=== PATIENT | female | born 1985 | race Caucasian/White ===

== ENCOUNTER 2018-06-05 07:02 | Outpatient (CLI) | payer BC, SELFPAY | END 2018-06-05 07:22 | PROVIDERS: PCP Nurse Practitioner Family; Visit Provider Advanced Practice Midwife | DX: O20.8 Other hemorrhage in early pregnancy (principal); Z34.91 Encounter for supervision of normal pregnancy, unspecified, first trimester | CPT/HCPCS: 36415; 86850; 86900; 86901; 84702 ==

== ENCOUNTER 2018-06-07 00:09 | Outpatient (CLI) | payer BC, SELFPAY ==
[2018-06-07 10:26] LABS: HCG Quant, Pregnancy 43361 mIU/mL (1-3)
== END 2018-06-07 00:29 ==
PROVIDERS: PCP Nurse Practitioner Family; Visit Provider Advanced Practice Midwife
DX: O20.0 Threatened abortion (principal)
CPT/HCPCS: 36415; 84702

== ENCOUNTER 2018-06-20 16:25 | Outpatient (CLI) | payer BC, SELFPAY ==
[2018-06-20 16:53] LABS: Abs Immature Grans 0.03 k/cumm (0.0-0.09); Absolute Basophil Count 0.03 k/cumm (0.0-0.2); Absolute Eosinophil Count 0.13 k/cumm (0.0-0.7); Absolute Lymphocyte Count 3.28 k/cumm (1.2-3.4); Absolute Monocyte Count 0.78 k/cumm (0.11-0.7); Absolute Neutrophil Count 6.44 k/cumm (1.2-6.7); Basophils % 0.3; Eosinophils % 1.2; HCT 41.3 % (36.0-46.0); HGB 14.2 g/dL (12.0-15.5); Immature Grans % 0.3; Lymphocytes % 30.7; Mean Corp. HGB Concentration 34.4 g/dL (32.0-36.0); Mean Corpuscular Hemoglobin 28.9 pg (27.0-33.0); Mean Corpuscular Volume 83.9 fL (80-95); Mean Platelet Volume 10.3 fL (8.0-11.0); Monocytes % 7.3; Neutrophils % 60.2; Platelet Count 228 x1000/uL (130-400); RBC 4.92 m/cumm (4.00-5.20); RBC Distribution Width 13.2 % (11.7-14.6); White Blood Cell Count 10.69 k/cumm (4.4-10.8)
[2018-06-23 11:21] LABS: HIV-1/2 Ag & Ab Screen Negative (NEGAT); Hepatitis C Ab w Rflx HCV PCR Negative (NEGAT)
[2018-06-23 11:44] LABS: Hepatitis B Surface Ag Negative (NEGAT)
[2018-06-23 13:58] LABS: Rubella IgG Ab (UVM) Positive; Syphilis Serology (RPR) Negative (Negative); Varicella IgG Antibody Positive
== END 2018-06-20 16:45 ==
PROVIDERS: PCP Nurse Practitioner Family; Visit Provider Advanced Practice Midwife
DX: Z34.91 Encounter for supervision of normal pregnancy, unspecified, first trimester (principal); Z11.4 Encounter for screening for human immunodeficiency virus [HIV]; Z11.59 Encounter for screening for other viral diseases; Z01.84 Encounter for antibody response examination
CPT/HCPCS: 36415; 80055; 86787; 86803; 86900; 86901; 87340; 87389; 86592; 86762

== ENCOUNTER 2018-06-20 16:55 | Outpatient (REF) | payer BC, SELFPAY ==
--- NOTE | 2018-06-20 16:15 | PAPFT_PTH ---
PATIENT: Emmie Alicea LOC: [facility] U#:[id number] AGE/SX: 32/F ROOM: RE06/20/[address]: Mei Valdes CNM : 1985 BED: DIS: 06/20/2018 SPEC #: [id number] RECD: 06/23/18 12:51 STATUS: JOSE RELamonte #: [id number] RAFFAELE: 06/20/18 16:[address]: Mei Valdes DEPT: [facility] Cytology RECD BY: Yoselyn Pearson ENTERED: 06/23/18 12:52 SP TYPE: PAPFT OTHR DR: Nadia Napier Tissues: 1 - CX/ENDOCX FOR PAP SMEARS Procedures: PAP THIN PREP/UVM Screening HPV DNA PROBE Comments: [id number]
[2018-06-20 17:42] LABS: *AMPHETAMINES SCREEN URINE Negative (Negative); *BARBITURATES SCREEN URINE Negative (Negative); *BENZODIAZEPINES SCREEN URINE Negative (Negative); Cannabinoids THC Negative (Negative); Cocaine Screen,Urine Negative (Negative); METHADONE URINE SCREEN Negative (Negative); OPIATES URINE SCREEN Negative (Negative)
[2018-06-20 17:56] LABS: Tricyclic Antidepressants Negative (Negative)
[2018-06-23 13:42] LABS: Chlamydia Result Negative; GC Result Negative
[2018-06-26 08:26] LABS: Buprenorphine Negative; Norbuprenorphine Negative
== END 2018-06-20 17:15 ==
LOC: LBN 16:55
PROVIDERS: PCP Nurse Practitioner Family; Visit Provider Advanced Practice Midwife
DX: Z34.91 Encounter for supervision of normal pregnancy, unspecified, first trimester (principal); Z11.3 Encounter for screening for infections with a predominantly sexual mode of transmission; Z12.4 Encounter for screening for malignant neoplasm of cervix; Z11.51 Encounter for screening for human papillomavirus (HPV)
CPT/HCPCS: 80307; 87491; 87591; 88142; 87086; 87624

== ENCOUNTER 2018-07-18 13:38 | Outpatient (CLI) | payer BC, SELFPAY ==
[2018-07-18 14:06] LABS: Kit/Specimen SENT
[2018-07-18 15:03] LABS: TSH (W/Ref FT4) 0.99 uIU/mL (0.358-3.74)
[2018-07-24 15:16] LABS: Specimen WB Whole Blood
[2018-07-25 16:53] LABS: Result Summary NEGATIVE; Specimen WB Whole Blood
== END 2018-07-18 13:58 ==
PROVIDERS: PCP Nurse Practitioner Family; Visit Provider Advanced Practice Midwife
DX: Z34.91 Encounter for supervision of normal pregnancy, unspecified, first trimester (principal); Z36.89 Encounter for other specified antenatal screening
CPT/HCPCS: 81329; 81220; 84443

== ENCOUNTER 2018-08-22 16:21 | Outpatient (CLI) | payer BC, SELFPAY ==
[2018-08-26 17:01] LABS: AFP 46.6 ng/mL; Calculated age at EDD 31 years; Cigarette smoking status non-smoker; GA used in risk estimate Dates estimate; IVF Pregnancy No; Initial or repeat testing Initial testing; Insulin dependent diabetes No; Maternal Weight 170 lbs; Number of Fetuses 1; Physician Phone Number 802-748-7300; RECOMMENDED FOLLOW UP None.; Results Summary Normal risk
== END 2018-08-22 16:41 ==
PROVIDERS: PCP Nurse Practitioner Family; Visit Provider Advanced Practice Midwife
DX: Z34.91 Encounter for supervision of normal pregnancy, unspecified, first trimester (principal); Z36.89 Encounter for other specified antenatal screening
CPT/HCPCS: 36415; 82105

== ENCOUNTER 2018-10-24 02:02 | Outpatient (CLI) | payer BC, SELFPAY ==
[2018-10-24 09:04] LABS: HCT 38.1 % (36.0-46.0); HGB 13.2 g/dL (12.0-15.5); Mean Corp. HGB Concentration 34.6 g/dL (32.0-36.0); Mean Corpuscular Hemoglobin 29.9 pg (27.0-33.0); Mean Corpuscular Volume 86.4 fL (80-95); Mean Platelet Volume 10.9 fL (8.0-11.0); Platelet Count 213 x1000/uL (130-400); RBC 4.41 m/cumm (4.00-5.20); White Blood Cell Count 10.31 k/cumm (4.4-10.8)
[2018-10-24 09:05] LABS: Glucose,1 Hr (Glucola) 68 mg/dL (80-140)
== END 2018-10-24 02:22 ==
PROVIDERS: PCP Nurse Practitioner Family; Visit Provider Advanced Practice Midwife
DX: Z34.92 Encounter for supervision of normal pregnancy, unspecified, second trimester (principal)
CPT/HCPCS: 36415; 82950; 85027

== ENCOUNTER 2018-11-24 00:28 | Outpatient (CLI) | payer BC, SELFPAY ==
--- NOTE | 2018-11-24 13:47 | DI.US_ITS ---
SYMPTOM/DIAGNOSIS: 3RD TRIMESTER F/U TO CHECK FOR NML DEVELOPMENT Z34.90, Z82.79 OBSTETRICAL ULTRASOUND: Routine examination was performed. There is a single living intrauterine gestation. Estimated sonographic age is 34 weeks 3 days. The placenta is posterior without evidence of previa The fetus is in the breech position. heart rate is 147 BPM. No abnormalities were identified. The kidneys appear grossly unremarkable. heart is grossly unremarkable. No abnormal intracranial abnormalities are seen. Estimated gestational age is 34 weeks 3 days Estimated weight is 2371 grams which is the 95th percentile IMPRESSION: Single living intrauterine gestation. Estimated sonographic age is 34 weeks 3 days Predicted Gestational Age: Indication/History: 32 Wks Range: 31 to 33 Prior US done on: Determined by: First US LMP History EDC by prior US: 01/19/19 For multiple gestations: Baby PLACENTA: Grade: I Location: Posterior PRESENTATION: RT LT LOW LYING PREVIA Cephalic Trans (Head RT LT ) Varied Breech XX BIOMETRY: Anatomy Identified: BPD: 85 mm 34 +2 wks 4 chamber Heart XX Heart Rate 147 BPM HC: 318 mm 35 +6 wks LVOT XX Post Fossa XX AC: 303 mm 34 +1 wks RVOT XX Ventricles XX FL: 65 mm 33 +4 wks Stomach XX Nose XX Bladder XX Lips XX Cisterna Magna: 6.6 mm 7.9 CI: Kidneys XX Palate XX Cerebellum: 4.2 mm 3 vessel cord XX Spine XX EFW: 2371 grms 95 % Cord Insertion XX NS= not seen Composite Age (US) 34 +3 wks Many abnormalities cannot be diagnosed. A normal exam does not exclude congenital abnormality. EDC by US 01/02/19 Amniotic Fluid Index: Normal COMMENTS: RUQ: LUQ: RLQ: LLQ: Total: cm Biophysical Profile: Score 0/2 MARIA EUGENIA (>2cm) Respirations (>30 sec) Body flexion/extension Extremity flexion/extension TOTAL SCORE
== END 2018-11-24 00:48 ==
PROVIDERS: PCP Nurse Practitioner Family; Visit Provider Advanced Practice Midwife
DX: Z34.93 Encounter for supervision of normal pregnancy, unspecified, third trimester (principal); Z82.79 Family history of other congenital malformations, deformations and chromosomal abnormalities; O32.1XX1 Maternal care for breech presentation, fetus 1
CPT/HCPCS: 76805

== ENCOUNTER 2018-12-19 03:24 | Outpatient (REF) | payer BC, SELFPAY ==
[2018-12-19 16:59] LABS: PROTEIN 13.2 mg/dL
[2018-12-19 17:00] LABS: COMMENT (LAB VIEW ONLY) 48.85 mg/dL; Prot/Crea Ur Ratio 0.27
[2018-12-19 17:03] LABS: *AMPHETAMINES SCREEN URINE Negative (Negative); *BARBITURATES SCREEN URINE Negative (Negative); *BENZODIAZEPINES SCREEN URINE Negative (Negative); Cannabinoids THC Negative (Negative); Cocaine Screen,Urine Negative (Negative); METHADONE URINE SCREEN Negative (Negative); OPIATES URINE SCREEN Negative (Negative)
[2018-12-19 17:05] LABS: Tricyclic Antidepressants Negative (Negative)
[2018-12-28 08:48] LABS: Buprenorphine Negative; Norbuprenorphine Negative
== END 2018-12-19 03:44 ==
LOC: LBN 03:24
PROVIDERS: PCP Internal Medicine; Visit Provider Advanced Practice Midwife
DX: Z34.93 Encounter for supervision of normal pregnancy, unspecified, third trimester (principal)
CPT/HCPCS: 80307; 82565; 84156

== ENCOUNTER 2018-12-26 09:28 | Outpatient (CLI) | payer BC, SELFPAY ==
[2018-12-26 09:59] LABS: HCT 40.2 % (36.0-46.0); HGB 13.6 g/dL (12.0-15.5); Mean Corp. HGB Concentration 33.8 g/dL (32.0-36.0); Mean Corpuscular Hemoglobin 29.2 pg (27.0-33.0); Mean Corpuscular Volume 86.5 fL (80-95); Mean Platelet Volume 12.2 fL (8.0-11.0); Platelet Count 189 x1000/uL (130-400); RBC 4.65 m/cumm (4.00-5.20); RBC Distribution Width 13.4 % (11.7-14.6); White Blood Cell Count 9.89 k/cumm (4.4-10.8)
[2018-12-26 10:28] LABS: PROTEIN 22.6 mg/dL
[2018-12-26 10:31] LABS: COMMENT (LAB VIEW ONLY) 185.63 mg/dL; Prot/Crea Ur Ratio 0.12
[2018-12-26 10:38] LABS: ALT 26 U/L (14-59); AST 25 U/L (15-37); Albumin 2.4 g/dL (3.4-5.0); Alkaline Phosphatase 113 U/L (46-116); Anion Gap 11.4 mmol/L (3-11); BUN 10 mg/dL (7-18); Bilirubin, Total 0.4 mg/dL (0.2-1.0); CO2 21.6 mmol/L (21.0-32.0); CREATININE 0.66 mg/dL (0.55-1.02); Calcium 9.1 mg/dL (8.5-10.1); Chloride 107 mmol/L (98-107); Glucose 75 mg/dL (70-100); Potassium 4.3 mmol/L (3.5-5.1); Sodium 140 mmol/L (136-145); Total Protein 6.4 g/dL (6.4-8.2); Uric Acid 5.3 mg/dL (2.6-6.0)
== END 2018-12-26 09:48 ==
PROVIDERS: PCP Internal Medicine; Visit Provider Advanced Practice Midwife
DX: O14.93 Unspecified pre-eclampsia, third trimester
CPT/HCPCS: 36415; 80053; 85027; 82565; 84156; 84550

== ENCOUNTER 2018-12-26 10:17 | Outpatient (REF) | payer BC, SELFPAY | END 2018-12-26 10:37 | LOC: LBN 10:17 | PROVIDERS: PCP Internal Medicine; Visit Provider Advanced Practice Midwife | DX: Z34.93 Encounter for supervision of normal pregnancy, unspecified, third trimester (principal); Z11.2 Encounter for screening for other bacterial diseases | CPT/HCPCS: 87081 ==

== ENCOUNTER 2019-01-02 09:48 | Outpatient (CLI) | payer BC, SELFPAY ==
[2019-01-02 11:28] LABS: HCT 42.3 % (36.0-46.0); HGB 14.3 g/dL (12.0-15.5); Mean Corp. HGB Concentration 33.8 g/dL (32.0-36.0); Mean Corpuscular Hemoglobin 29.4 pg (27.0-33.0); Mean Corpuscular Volume 86.9 fL (80-95); Platelet Count 189 x1000/uL (130-400); RBC 4.87 m/cumm (4.00-5.20); RBC Distribution Width 13.6 % (11.7-14.6); White Blood Cell Count 9.21 k/cumm (4.4-10.8)
[2019-01-02 11:39] LABS: Uric Acid 5.1 mg/dL (2.6-6.0)
[2019-01-02 11:41] LABS: ALT 27 U/L (14-59); AST 23 U/L (15-37); Albumin 2.8 g/dL (3.4-5.0); Alkaline Phosphatase 114 U/L (46-116); Anion Gap 8.5 mmol/L (3-11); BUN 10 mg/dL (7-18); Bilirubin, Total 0.3 mg/dL (0.2-1.0); CO2 24.5 mmol/L (21.0-32.0); CREATININE 0.65 mg/dL (0.55-1.02); Calcium 8.8 mg/dL (8.5-10.1); Chloride 106 mmol/L (98-107); Glucose 78 mg/dL (70-100); Potassium 4.1 mmol/L (3.5-5.1); Sodium 139 mmol/L (136-145)
[2019-01-02 11:52] LABS: PROTEIN 10.3 mg/dL
[2019-01-02 11:53] LABS: COMMENT (LAB VIEW ONLY) 44.53 mg/dL; Prot/Crea Ur Ratio 0.23
== END 2019-01-02 10:08 ==
PROVIDERS: PCP Internal Medicine; Visit Provider Advanced Practice Midwife
DX: O13.3 Gestational [pregnancy-induced] hypertension without significant proteinuria, third trimester (principal); Z3A.38 38 weeks gestation of pregnancy
CPT/HCPCS: 80053; 85027; 59025; 82565; 84156; 84550

== ENCOUNTER 2019-01-06 19:44 | Inpatient (IN) | payer BC, SELFPAY ==
[2019-01-06] MEDS: miSOPROStol 50 MCG TAB (21:28)
[2019-01-06 21:44] LABS: HCT 37.4 % (36.0-46.0); HGB 12.7 g/dL (12.0-15.5); Mean Corpuscular Hemoglobin 29.6 pg (27.0-33.0); Mean Corpuscular Volume 87.2 fL (80-95); Mean Platelet Volume 12.2 fL (8.0-11.0); Platelet Count 169 x1000/uL (130-400); RBC 4.29 m/cumm (4.00-5.20); RBC Distribution Width 13.2 % (11.7-14.6); White Blood Cell Count 10.86 k/cumm (4.4-10.8)
[2019-01-07] MEDS: miSOPROStol 25 MCG TAB 50 MCG PO ×5 (06:36→18:40)
[2019-01-07 15:22] LABS: ALT 20 U/L (14-59); AST 22 U/L (15-37); Albumin 2.8 g/dL (3.4-5.0); Alkaline Phosphatase 115 U/L (46-116); Anion Gap 10.4 mmol/L (3-11); BUN 10 mg/dL (7-18); Bilirubin, Total 0.3 mg/dL (0.2-1.0); CO2 22.6 mmol/L (21.0-32.0); CREATININE 0.72 mg/dL (0.55-1.02); Chloride 105 mmol/L (98-107); Glucose 89 mg/dL (70-100); Potassium 4.2 mmol/L (3.5-5.1); Sodium 138 mmol/L (136-145); Total Protein 6.7 g/dL (6.4-8.2); Uric Acid 5.1 mg/dL (2.6-6.0)
[2019-01-07 17:06] LABS: PROTEIN 21.9 mg/dL
[2019-01-07 17:20] LABS: Prot/Crea Ur Ratio 0.25
[2019-01-07] MEDS: Zolpidem 10 MG TAB PO (22:49)
[2019-01-08] MEDS: Lactated Ringers 1,000 ML 125 ML IV (09:20)
[2019-01-08] MEDS: Penicillin G POT. 5,000,000 UNITS in Normal Saline 100 ML 200 UNITS IVPB (09:21)
[2019-01-08] MEDS: Nalbuphine 10 MG/ML AMP SC (13:33)
[2019-01-08] MEDS: Penicillin G POT. 3,000,000 UNITS in Normal Saline 50 ML 100 UNITS IVPB (13:39)
[2019-01-08] MEDS: Hamamelis Leaf/Glycerin 100 EACH BOX PR (17:42)
[2019-01-08] MEDS: Ibuprofen 600 MG TAB PO (19:31)
[2019-01-08] MEDS: Acetaminophen 325 MG TAB 650 MG PO (19:31)
[2019-01-09] MEDS: Ibuprofen 600 MG TAB PO ×2 (03:55→11:44)
[2019-01-09] MEDS: Acetaminophen 325 MG TAB 650 MG PO ×2 (03:55→11:45)
[2019-01-09 07:12] LABS: HCT 34.5 % (36.0-46.0); HGB 11.5 g/dL (12.0-15.5); Mean Corp. HGB Concentration 33.3 g/dL (32.0-36.0); Mean Corpuscular Hemoglobin 29.2 pg (27.0-33.0); Mean Corpuscular Volume 87.6 fL (80-95); Mean Platelet Volume 12.6 fL (8.0-11.0); Platelet Count 179 x1000/uL (130-400); RBC 3.94 m/cumm (4.00-5.20); RBC Distribution Width 13.7 % (11.7-14.6); White Blood Cell Count 19.71 k/cumm (4.4-10.8)
[2019-01-10] MEDS: Acetaminophen 325 MG TAB 650 MG PO ×2 (02:27→08:40)
[2019-01-10] MEDS: Ibuprofen 600 MG TAB PO ×2 (02:28→08:40)
== END 2019-01-10 13:00 | disposition home or self-care (01) | DRG 807 ==
PROVIDERS: Advanced Practice Midwife; Admitting Provider Advanced Practice Midwife; PCP Internal Medicine; Visit Provider Advanced Practice Midwife
DX: O69.81X0 Labor and delivery complicated by cord around neck, without compression, not applicable or unspecified (principal); Z37.0 Single live birth; O70.1 Second degree perineal laceration during delivery; O13.4 Gestational [pregnancy-induced] hypertension without significant proteinuria, complicating childbirth; O76 Abnormality in fetal heart rate and rhythm complicating labor and delivery; Z3A.38 38 weeks gestation of pregnancy; O99.824 Streptococcus B carrier state complicating childbirth
CPT/HCPCS: 36415; 80053; 85027; 86850; 86900; 86901; 82565; 84156; 84550; J2540; J3490

== ENCOUNTER 2019-02-17 18:23 | Outpatient (REF) | payer BC, SELFPAY | END 2019-02-17 18:43 | LOC: LBN 18:23 | PROVIDERS: PCP Internal Medicine; Visit Provider Advanced Practice Midwife | DX: N89.8 Other specified noninflammatory disorders of vagina (principal) | CPT/HCPCS: 87480; 87510; 87660 ==

== ENCOUNTER 2020-04-01 01:43 | Outpatient (CLI) | payer OTHER, SELFPAY ==
[2020-04-01 12:00] LABS: Abs Immature Grans 0.04 10^3/uL (0.0-0.06); Absolute Basophil Count 0.04 10^3/uL (0.0-0.2); Absolute Eosinophil Count 0.07 10^3/uL (0.0-0.7); Absolute Lymphocyte Count 2.42 10^3/uL (1.2-3.4); Absolute Monocyte Count 0.62 10^3/uL (0.1-0.8); Basophils % 0.3; Eosinophils % 0.6; HCT 40.4 % (36.0-46.0); HGB 13.6 g/dL (11.2-15.7); Immature Grans % 0.3; Lymphocytes % 20.3; MCH 28.6 pg (27.0-33.0); MCHC 33.7 % (32.0-36.0); MCV 85.1 fL (80-95); MPV 10.1 fL (8.0-11.0); Monocytes % 5.2; Neutrophils % 73.3; Nucleated RBC 0 %; Platelet Count 254 10^3/uL (130-400); RBC 4.75 10^6/uL (3.93-5.22); RDW 12.6 % (11.7-14.6); RDW-SD 39.2 fL
[2020-04-01 12:01] LABS: Absolute Neutrophil Count 8.72 10^3/uL (1.2-6.7)
[2020-04-01 13:04] LABS: TSH (W/Ref FT4) 0.88 uIU/mL (0.36-3.74)
[2020-04-03 10:44] LABS: Syphilis Total Ab w/Reflex Nonreactive (Nonreactive)
[2020-04-04 09:13] LABS: Hepatitis B Surface Ag Negative (Negative)
[2020-04-04 10:03] LABS: Hepatitis C Ab w Rflx HCV PCR Negative (Negative)
[2020-04-04 10:36] LABS: HIV-1/2 Ag & Ab Screen Negative (Negative)
[2020-04-04 12:33] LABS: Rubella IgG Ab (UVM) Positive (See Note); Varicella IgG Antibody Positive (See Note)
== END 2020-04-01 02:03 ==
PROVIDERS: PCP Internal Medicine; Visit Provider Advanced Practice Midwife
DX: Z34.91 Encounter for supervision of normal pregnancy, unspecified, first trimester (principal); Z11.4 Encounter for screening for human immunodeficiency virus [HIV]; Z01.84 Encounter for antibody response examination; Z11.59 Encounter for screening for other viral diseases
CPT/HCPCS: 36415; 80307; 86787; 86803; 86850; 86900; 86901; 87340; 87389; 87491; 87591; 84443; 85025; 86762; 86780; 87086

== ENCOUNTER 2020-04-01 12:00 | Outpatient (REF) | payer OTHER, SELFPAY ==
[2020-04-01 13:03] LABS: *AMPHETAMINES SCREEN URINE Negative (Negative); *BARBITURATES SCREEN URINE Negative (Negative); *BENZODIAZEPINES SCREEN URINE Negative (Negative); Cannabinoids THC Negative (Negative); Cocaine Screen,Urine Negative (Negative); METHADONE URINE SCREEN Negative (Negative); OPIATES URINE SCREEN Negative (Negative)
[2020-04-01 13:04] LABS: Tricyclic Antidepressants Negative (Negative)
[2020-04-04 15:33] LABS: Chlamydia Result Negative (Negative); GC Result Negative (Negative)
[2020-04-07 14:33] LABS: Buprenorphine Negative; Norbuprenorphine Negative
== END 2020-04-01 12:20 ==
LOC: LBN 12:00
PROVIDERS: PCP Internal Medicine; Visit Provider Advanced Practice Midwife
DX: Z34.91 Encounter for supervision of normal pregnancy, unspecified, first trimester (principal); Z11.3 Encounter for screening for infections with a predominantly sexual mode of transmission
CPT/HCPCS: 80307; 87491; 87591; 87086

== ENCOUNTER 2020-04-21 02:12 | Outpatient (CLI) | payer OTHER, SELFPAY ==
[2020-04-21 10:25] LABS: PROTEIN 13.5 mg/dL
[2020-04-21 10:27] LABS: COMMENT (LAB VIEW ONLY) 110.78 mg/dL; Prot/Crea Ur Ratio 0.12
[2020-04-21 10:28] LABS: HCT 39.1 % (36.0-46.0); HGB 13.1 g/dL (11.2-15.7); MCH 28.6 pg (27.0-33.0); MCHC 33.5 % (32.0-36.0); MCV 85.4 fL (80-95); MPV 10.4 fL (8.0-11.0); Platelet Count 242 10^3/uL (130-400); RBC 4.58 10^6/uL (3.93-5.22); RDW 13.1 % (11.7-14.6); WBC 11.61 10^3/uL (4.4-10.8)
[2020-04-21 11:03] LABS: ALT 19 U/L (14-59); AST 12 U/L (15-37); Albumin 3.5 g/dL (3.4-5.0); Alkaline Phosphatase 42 U/L (46-116); Anion Gap 11.4 mmol/L (3-11); BUN 9 mg/dL (7-18); Bilirubin, Total 0.5 mg/dL (0.2-1.0); CO2 21.6 mmol/L (21.0-32.0); CREATININE 0.55 mg/dL (0.55-1.02); Calcium 8.9 mg/dL (8.5-10.1); Chloride 105 mmol/L (98-107); Glucose 101 mg/dL (74-106); Potassium 3.9 mmol/L (3.5-5.1); Sodium 138 mmol/L (136-145); Uric Acid 3.8 mg/dL (2.6-6.0)
[2020-04-21 17:04] LABS: Kit/Specimen SENT
[2020-04-25 16:55] LABS: AFP 27.3 ng/mL; Cigarette smoking status non-Smoker; GA used in risk estimate Scan estimate; IVF Pregnancy No; Initial or repeat testing Initial testing; Insulin dependent diabetes No; Maternal Weight 171 lbs; Number of Fetuses 1; Physician Phone Number 802-748-7300; Prev Pregnancy w/NTD No; RECOMMENDED FOLLOW UP None.; Results Summary Normal risk
== END 2020-04-21 02:32 ==
PROVIDERS: PCP Internal Medicine; Visit Provider Advanced Practice Midwife
DX: Z34.92 Encounter for supervision of normal pregnancy, unspecified, second trimester (principal)
CPT/HCPCS: 36415; 80053; 85027; 82105; 82565; 84156; 84550

== ENCOUNTER 2020-05-11 01:36 | Outpatient (CLI) | payer OTHER, SELFPAY ==
--- NOTE | 2020-05-11 07:00 | DI.US_ITS ---
EXAM: US OB 2-3 TRIMESTER CLINICAL HISTORY: routine pnc,Z34.90. TECHNIQUE: Transabdominal obstetrical ultrasound was performed. COMPARISON: US US OB 2-3 trimester from 11/24/2018 FINDINGS: There is a single viable intrauterine gestation with cardiac activity identified-153 bpm. Amniotic fluid: There is a normal amount of amniotic fluid. Placental location: The placenta is posterior grade 0,with no evidence of placenta previa. ANATOMY: A 3 vessel umbilical cord is seen. A four-chamber cardiac view was obtained. Right and left ventricular outflow tracts were imaged. There are no obvious abnormalities of the spinal column evident. There is no obvious abnormal ity of the anterior abdominal wall. stomach and urinary bladder are identified and there is no evidence of hydronephrosis. No abnormalities of the upper lip region are identified. No evidence of choroid plexus cysts i n the brain. Dating parameters place this at approximately 18 weeks and 5 days gestational age. BPD measures 18 weeks and 5 days HC measures 18 weeks and 6 days AC measures 18 weeks and 2 days FL measures 18 weeks and 5 days Estimated weight is 245 gm-0 pounds 9 ounces Fetus is at the 70th percentile on the Hadlock scale. IMPRESSION:: Single viable intrauterine gestation which is approximately 18 weeks and 5 days gestati onal age, implying an RICO of October 07, 2020. There are no obvious anomalies evident on today's study. The placenta is posterior with no evidence of placenta previa. There is a normal amount of amniotic fluid. DATA REPOSITORY:
== END 2020-05-11 01:56 ==
PROVIDERS: PCP Internal Medicine; Visit Provider Advanced Practice Midwife
DX: Z34.92 Encounter for supervision of normal pregnancy, unspecified, second trimester (principal)
CPT/HCPCS: 76805

== ENCOUNTER 2020-07-08 02:17 | Outpatient (CLI) | payer OTHER, SELFPAY ==
[2020-07-08 11:25] LABS: HCT 37.9 % (36.0-46.0); HGB 12.9 g/dL (11.2-15.7); MCH 29.6 pg (27.0-33.0); MCV 86.9 fL (80-95); MPV 10.7 fL (8.0-11.0); Platelet Count 207 10^3/uL (130-400); RBC 4.36 10^6/uL (3.93-5.22); RDW 12.9 % (11.7-14.6); RDW-SD 40.8 fL; WBC 13.68 10^3/uL (4.4-10.8)
[2020-07-08 11:33] LABS: Glucose,1 Hr (Glucola) 113 mg/dL (80-140)
== END 2020-07-08 02:18 | disposition home or self-care (01) ==
LOC: LBO 02:17
PROVIDERS: Advanced Practice Midwife; PCP Internal Medicine; Visit Provider Advanced Practice Midwife
DX: Z34.92 Encounter for supervision of normal pregnancy, unspecified, second trimester (principal)
CPT/HCPCS: 36415; 82950; 85027

== ENCOUNTER 2020-08-25 01:11 | Outpatient (CLI) | payer OTHER, SELFPAY ==
--- NOTE | 2020-08-25 07:15 | DI.US_ITS ---
Exam(s) US OB MARIA EUGENIA WEIGHT EXAM: US OB MARIA EUGENIA WEIGHT CLINICAL HISTORY: history of gestational hypertension,Z87.59. TECHNIQUE: Transabdominal obstetrical ultrasound was performed. COMPARISON: US US OB 2-3 TRIMESTER from 05/11/2020 FINDINGS: There is a single viable intrauterine gestation with cardiac activity identified-136 bpm The fetus is presently in cephalic position . Amniotic fluid: There is a normal amount of amniotic fluid with an MARIA EUGENIA of 19.5cm. Placental location: The placenta is posterior/fundal, grade 2,with no evidence of placenta previa. Dating parameters place this at approximately 35 weeks and 2 days gestational age, implying RICO of September 27, 2020. BPD measures 35 weeks and 2 days HC measures 37 weeks and 2 days AC measures 35 weeks and 5 days FL measures 32 weeks and 6 days Estimated weight is 2600 gm-5 pounds 12 ounces Fetus is at the 80th percentile on the Hadlock scale. IMPRESSION:: Viable 3rd trimester gestation, as described above. Fetus is at the 80th percentile on the Hadlock scale. Normal amount of amniotic fluid. DATA REPOSITORY:
== END 2020-08-25 01:31 ==
PROVIDERS: PCP Internal Medicine; Visit Provider Advanced Practice Midwife
DX: O13.3 Gestational [pregnancy-induced] hypertension without significant proteinuria, third trimester (principal); Z3A.35 35 weeks gestation of pregnancy
CPT/HCPCS: 76816

== ENCOUNTER 2020-09-08 16:16 | Outpatient (REF) | payer OTHER, SELFPAY ==
[2020-09-08 16:55] LABS: *AMPHETAMINES SCREEN URINE Negative (Negative); *BARBITURATES SCREEN URINE Negative (Negative); *BENZODIAZEPINES SCREEN URINE Negative (Negative); Cannabinoids THC Negative (Negative); Cocaine Screen,Urine Negative (Negative); METHADONE URINE SCREEN Negative (Negative); OPIATES URINE SCREEN Negative (Negative)
[2020-09-08 16:57] LABS: Tricyclic Antidepressants Negative (Negative)
[2020-09-15 16:50] LABS: Buprenorphine Negative ng/mL (Cutoff: 5.0); Norbuprenorphine Negative ng/mL (Cutoff: 2.5)
== END 2020-09-08 16:17 | disposition home or self-care (01) ==
LOC: LBN 16:16
PROVIDERS: PCP Internal Medicine; Visit Provider Advanced Practice Midwife
DX: Z34.93 Encounter for supervision of normal pregnancy, unspecified, third trimester (principal); Z36.85 Encounter for antenatal screening for Streptococcus B; Z3A.35 35 weeks gestation of pregnancy
CPT/HCPCS: 80307; 87081

== ENCOUNTER 2020-09-21 11:06 | Outpatient (CLI) | payer OTHER, SELFPAY ==
[2020-09-21 11:14] VITALS: BP 129/66; PULSE 90; TEMP 37.1
[2020-09-21 11:25] VITALS: BP 129/66; PULSE 90
--- NOTE | 2020-09-21 12:23 | W.OBNST ---
Date of service: 09/21/20 Time of Service: 12:23 NST Evaluation Reason for NST Reasons for Nonstress Test: DECREASED MOVEMENT Gestational Age Gestational Age in Weeks and Days: 38 Weeks and 2Days Test and Monitor Explained Test/Monitor Explained: Test Explained, Monitor Explained and Patient Verbalized Understanding Vital Signs Blood Pressure: 129/66 Pulse: 90 Temperature: 98.8 F NST Information Date on Monitor: 09/21/20 Time on Monitor: 11:18 Date off Monitor: 09/21/20 Time off Monitor: 11:43 Total Time on Monitor: 25 NST Interventions: PO Hydration NST Evaluation Patient States Movement: Present Variability: Moderate 6-25 bpm Accelerations: 15x15 Decelerations: None NST Results: Reactive Note NST Note Note: Emmie reported decreased movement at her visit today. Fetus was active during her NST. RTO 1 week NST Reviewed and Verified by: Rosa Aragon
[2020-09-21 12:25] VITALS: BP 129/66; PULSE 90; TEMP 37.1
== END 2020-09-21 11:44 | disposition home or self-care (01) ==
LOC: BCD 11:08 → OBS 11:13
PROVIDERS: PCP Internal Medicine; Visit Provider Advanced Practice Midwife
DX: O36.8130 Decreased fetal movements, third trimester, not applicable or unspecified (principal); Z3A.38 38 weeks gestation of pregnancy
CPT/HCPCS: 59025

== ENCOUNTER 2020-09-21 15:18 | Outpatient (REF) | payer OTHER, SELFPAY ==
[2020-09-21 13:49] LABS: PROTEIN 13.1 mg/dL
[2020-09-21 14:10] LABS: COMMENT (LAB VIEW ONLY) 39.55 mg/dL; Prot/Crea Ur Ratio 0.33
== END 2020-09-21 15:19 | disposition home or self-care (01) ==
LOC: LBN 15:18
PROVIDERS: PCP Internal Medicine; Visit Provider Advanced Practice Midwife
DX: O12.13 Gestational proteinuria, third trimester (principal); Z3A.37 37 weeks gestation of pregnancy
CPT/HCPCS: 82565; 84156

== ENCOUNTER 2020-09-23 07:07 | Outpatient (CLI) | payer OTHER, SELFPAY ==
[2020-09-23 09:06] VITALS: BP 135/73; PULSE 93; TEMP 36.7
[2020-09-23 09:14] VITALS: BP 135/73; PULSE 93
[2020-09-23 09:42] VITALS: BP 135/82; PULSE 88
[2020-09-23 09:53] LABS: PROTEIN 15.6 mg/dL (0.0-11.9)
[2020-09-23 09:57] LABS: Total Volume 2500 ml
[2020-09-23 10:02] LABS: HCT 39.6 % (36.0-46.0); HGB 13.4 g/dL (11.2-15.7); MCH 28.8 pg (27.0-33.0); MCHC 33.8 % (32.0-36.0); MPV 11.6 fL (8.0-11.0); Platelet Count 173 10^3/uL (130-400); RBC 4.66 10^6/uL (3.93-5.22); RDW 13.3 % (11.7-14.6); RDW-SD 40.8 fL; WBC 10.98 10^3/uL (4.4-10.8)
--- NOTE | 2020-09-23 10:04 | W.OBNST ---
Date of service: 09/23/20 Time of Service: 10:04 NST Evaluation Reason for NST Reasons for Nonstress Test: GESTATIONAL HYPERTENSION Gestational Age Gestational Age in Weeks and Days: 38 Weeks and 4Days Test and Monitor Explained Test/Monitor Explained: Test Explained, Monitor Explained and Patient Verbalized Understanding Vital Signs Blood Pressure: 135/73 Pulse: 93 Temperature: 98.1 F NST Information Date on Monitor: 09/23/20 Time on Monitor: 09:13 Date off Monitor: 09/23/20 Time off Monitor: 09:48 Total Time on Monitor: 35 NST Interventions: PO Hydration NST Evaluation Patient States Movement: Present FHR Baseline: 135 Variability: Moderate 6-25 bpm Accelerations: 15x15 Decelerations: None NST Results: Reactive Note NST Note Note: preeclampsia labs drawn due to history of chronic hypertension and edema last week. No edema noted today. B.P. 135/ 73 and repeat 135 /82. preeclampsia labs and 24 hour urine today. 24 hour urine proteinin is 390 today. Await results of serum labs. NST Reviewed and Verified by: Rosa Aragon
[2020-09-23 10:07] VITALS: BP 135/73; PULSE 93; TEMP 36.7
[2020-09-23 10:12] LABS: ALT 16 U/L (14-59); AST 16 U/L (15-37); Albumin 2.8 g/dL (3.4-5.0); Alkaline Phosphatase 105 U/L (46-116); Anion Gap 10.9 mmol/L (3-11); BUN 8 mg/dL (7-18); Bilirubin, Total 0.5 mg/dL (0.2-1.0); CO2 22.1 mmol/L (21.0-32.0); CREATININE 0.5 mg/dL (0.55-1.02); Chloride 107 mmol/L (98-107); Glucose 93 mg/dL (74-106); Potassium 3.8 mmol/L (3.5-5.1); Sodium 140 mmol/L (136-145); Total Protein 6.5 g/dL (6.4-8.2); Uric Acid 4.1 mg/dL (2.6-6.0)
== END 2020-09-23 09:55 | disposition home or self-care (01) ==
LOC: BCD 07:09 → OBS 09:05
PROVIDERS: PCP Internal Medicine; Visit Provider Advanced Practice Midwife
DX: O12.13 Gestational proteinuria, third trimester (principal); Z3A.38 38 weeks gestation of pregnancy
CPT/HCPCS: 59025; 80053; 85027; 81050; 84155; 84550

== ENCOUNTER 2020-09-25 08:45 | Outpatient (CLI) | payer OTHER, SELFPAY ==
[2020-09-25 09:32] VITALS: BP 136/78; PULSE 85
[2020-09-25 10:07] VITALS: BP 136/78; PULSE 85; TEMP 36.6
--- NOTE | 2020-09-25 13:33 | W.OBNST ---
Date of service: 09/25/20 Time of Service: 12:00 NST Evaluation Reason for NST Reasons for Nonstress Test: OTHER, SEE COMMENT Reason for NST Other: Blood pressure check, strip membranes Gestational Age Gestational Age in Weeks and Days: 38 Weeks and 6Days Test and Monitor Explained Test/Monitor Explained: Test Explained, Monitor Explained and Patient Verbalized Understanding Vital Signs Blood Pressure: 136/78 Pulse: 85 Temperature: 97.9 F Urine Results Urine Protein: Positive Urine Ketones: Negative Urine Glucose: Positive Urine Blood: Negative NST Information Date on Monitor: 09/25/20 Time on Monitor: 09:10 Date off Monitor: 09/25/20 Time off Monitor: 09:35 Total Time on Monitor: 25 NST Interventions: PO Hydration Contraction Frequency: irritability NST Evaluation Patient States Movement: Present FHR Baseline: 145 Variability: Moderate 6-25 bpm Accelerations: 15x15 Decelerations: None NST Results: Reactive Note NST Note Note: Here for NST and B.P check due to proteinuria. SVE - FT dilated posterior/20% effaced. Induction planned for tomorrow morning. NST Reviewed and Verified by: Rosa Aragon
[2020-09-25 13:35] VITALS: BP 136/78; PULSE 85; TEMP 36.6
== END 2020-09-25 09:45 | disposition home or self-care (01) ==
LOC: BCD 08:47 → OBS 08:54
PROVIDERS: PCP Internal Medicine; Visit Provider Advanced Practice Midwife
DX: O12.13 Gestational proteinuria, third trimester (principal); Z3A.38 38 weeks gestation of pregnancy
CPT/HCPCS: 59025

== ENCOUNTER 2020-09-26 09:21 | Inpatient (IN) | payer OTHER, SELFPAY ==
[2020-09-26] VITALS (8 sets, daily range): BP systolic 126–139; BP diastolic 68–76; PULSE 85–103; RESP 16–18; TEMP 36.6–37
--- NOTE | 2020-09-26 09:25 | HPE_ITS ---
Date of service: 09/26/20 Time of Service: 09:50 Assessment and Plan Assessment and plan (1) Elective induction of labor planned: Status: Acute Assessment and plan: Admit to Center. Comfort measures. Covid- 19 test. Anticipate . will adminitster misoprostol per protocol. (2) Proteinuria: Status: Acute OB-HPI Labor/Delivery History of Present Illness Chief Complaint: Scheduled Induction of Labor Indication for Induction: Other (proteinuria). RICO Calculator Estimated Delivery Date Method Current WG Current Estimate 10/03/20 LMP (Certain) 39w 0d Other Estimates 10/11/20 Ultrasound #1 37w 6d Comments: Emmie was tested for proteinuria due to edema and urine protein was 390 by 24 hour urine. A plan was made in consultation with Dr. Aguilar for induction of labor at 39 weeks and emmie presents today for cervical ripening. History of Present Expected Delivery Route/Plan - CNM FOB/ - Jeff Pinedo Does not wish to know gender, if male will circ Hopes to use tub for labor and maybe GBS positive Specific Issues/Plan 1. H/O gest. htn iol for same @ 38 wks + wks. Will start low dose asa today. 1a. Provider meeting 04/05: CNM care appropriate, collaborative care if meets criteria for gestational HTN 1b. Emmie is taking her B.P. frequently at home. 1c. B.P. 126/70 09/21- trace pedal edema. prot/creat ratio 0.33- 24 hour urine started. NST and labs 09/23 1d. 24-hr urine 390, Normotensive. induction planned for 39 weeks. 2. AFP low risk al 3. [place] low risk x3 voice mail left on pts cell, declined gender w/ testing.al 4. Emmie and her partner eceived covid vaccine, had covid exposure 08/01/20- test negative. 5. Anxiety - saw Dr. Brewster in the past. She would like to see him again. Referred to Joan Lanier, had appt 08/25 5a. Interested in counseling- Will contact Dr. Brewster. 6. Family history Tuberous sclerosis 7. US at 34 weeks - EFW 80%ile, MARIA EUGENIA 19.5 PFSH Medical History Carpal tunnel syndrome Left carpal tunnel injection: 12/15/2018 HPV (human papilloma virus) infection Nevus Pain of both elbows Rabies exposure Has never been exposed. Received rabies vaccine Surgical History (Updated 04/01/20 @ 10:20 by Yani Charlton CNM) No pertinent past surgical history Family History (Updated 04/01/20 @ 10:23 by Yani Charlton CNM) Paternal Grandmother Breast cancer Maternal Grandmother Glioblastoma Maternal Uncle Diabetes Paternal Uncle Asthma Social History Smoking/Tobacco Use Status: Never Smoking risk assessment performed?: Yes Alcohol Intake: former (social drinking, stopped when became ) Substance use type: does not use History History 2 Para 1 Hx # Term Pregnancies 1 Multiple births 0 Hx # Pregnancies 0 Ectopic pregnancies 0 AB induced 0 Hx Number of Living Children 1 AB spontaneous 0 Past Pregnancies Del. Date GA/Weeks # Outcome Route Wgt Sex Labor Lgth Anesthes ia Location Prov Complic 01/08/19 38 Successful vaginal 7 lb 9 oz Male 8 hours of active labor local Rosa Aragon other Delivery Date: 01/08/19 iol for gest htn. Nitrous and one dose of nubain 10 mg SC given. Pitocin used. Second degree laceration repaired under local anesthetic. No infant complications. GBS pos. Rosa Aragon [place] Allergies and Home Medications Allergies Allergy/AdvReac Type Severity Reaction Status Date / Time No Known Allergies Allergy Verified 09/21/20 10:41 Home Medications Medication Instructions Recorded Confirmed Type vitamin with calcium 1 tab PO DAILY 05/19/18 07/22/20 History no.72-iron 27 mg-folic acid 1 mg tablet aspirin 81 mg tablet,delayed 100 mg PO DAILY tab 04/21/20 07/22/20 History release pantoprazole 20 mg tablet,delayed 20 mg PO DAILY #60 tab 07/22/20 07/22/20 Rx release breast pump #1 ea 08/25/20 08/25/20 Rx Exam Constitutional Constitutional: no acute distress Detailed Labor and Delivery Exam Leslie Score: Cervical Points Exam 0 1 2 3 Dilation Closed 1-2cm 3-4 cm 5-6cm Effacement 0-30% 40-50% 60-70% 80% Consistency Firm Medium Soft Station -3 -2 -1,0 +1,+2 Position Posterior Mid Anterior Amniotic Membrane Status: Intact Contraction Frequency(min): occasional Contraction Duration(sec): 40 Contraction Intensity: Mild Fetus A Heart Rate Baseline: 130 Monitor Accelerations: 15 X 15 Monitor Decelerations: None Variability: Moderate (6-25 BPM) Presentation: Vertex Categories: Category I Chest/Brest/Axilla Exam Chest Exam: Normal Respiratory Exam Respiratory Exam: Normal Cardiovascular Exam Cardiovascular Exam: Normal Abdominal Exam Abdominal Exam: Normal Exam Exam: Normal Extremities Exam Extremities Exam: Normal Back/Spine/Pelvis Exam Pelvis Adequate: Yes Skin Exam Skin Exam: Normal Psychiatric Exam Psychiatric Exam: Normal Risk Assessment Risk for Shoulder Dystocia Historical/Initial OB: NEGATIVE FOR: Pelvic Abnormality, Pre- BMI>30, Previous Shoulder Dystocia or Previous Macrosomia 40 Weeks: NEGATIVE FOR: EFW> 4500 gms, Maternal Weight Gain >40lb or Post Dates Counselin04/01/20 iob low risk al Risk for Pre-Eclampsia Daily Dose ASA Indicated: Yes Date Initiated/Initials: 04/01/20 al Yes, if one or more: POSTIVE FOR: Hx Pre-E/Gest HTN (04/01/20 iob iol for same @ 38+ wks. al); NEGATIVE FOR: Chronic HTN, Multiple Gestation, Pre-gestational DM, Renal Disease, Systemic Lupus or APA Syndrome Yes, if 2 or more: NEGATIVE FOR: Nulliparity, Age>= 35 yrs, >10yr btwn pregnancies, BMI>30, ethinicty, Mother/Sister w/ Pre-E or Previous IUGR Risk for Post- Hemorrhage Initial: NEGATIVE FOR: Multiple Gestation, Previous PPH, Known Clotting Deficiency, Grand Multiparity or Anticoagulation At Risk?: Yes Interventions: 04/01/20 iob al Counseled re: Active Management: Yes Risks Reviewed Risks Reviewed Upon Admission: Yes
[2020-09-26] MEDS: miSOPROStol 25 MCG TAB 50 MCG PO ×3 (10:40→19:25)
[2020-09-26 11:12] LABS: PROTEIN 13.1 mg/dL
[2020-09-26 11:16] LABS: HCT 40.5 % (36.0-46.0); HGB 13.7 g/dL (11.2-15.7); MCH 29.1 pg (27.0-33.0); MCHC 33.8 % (32.0-36.0); MCV 86.2 fL (80-95); MPV 11.8 fL (8.0-11.0); Platelet Count 179 10^3/uL (130-400); RDW 13.4 % (11.7-14.6); RDW-SD 41.1 fL; WBC 12.13 10^3/uL (4.4-10.8)
[2020-09-26 11:27] LABS: Source Nasal/Nares
[2020-09-26 11:29] LABS: ALT 18 U/L (14-59); AST 15 U/L (15-37); Alkaline Phosphatase 110 U/L (46-116); Anion Gap 11.9 mmol/L (3-11); BUN 6 mg/dL (7-18); Bilirubin, Total 0.4 mg/dL (0.2-1.0); CO2 21.1 mmol/L (21.0-32.0); CREATININE 0.5 mg/dL (0.55-1.02); Calcium 8.9 mg/dL (8.5-10.1); Chloride 106 mmol/L (98-107); Glucose 77 mg/dL (74-106); Potassium 3.9 mmol/L (3.5-5.1); Sodium 139 mmol/L (136-145); Total Protein 6.9 g/dL (6.4-8.2); Uric Acid 4.1 mg/dL (2.6-6.0)
[2020-09-26 12:20] LABS: COVID-19 PCR Negative (Negative)
--- NOTE | 2020-09-26 20:35 | NUR.NOTE ---
Nursing Note: Call to Rosa JUAREZ to update and get plan for the night.
--- NOTE | 2020-09-26 21:32 | NUR.NOTE ---
Nursing Note: Plan reviewed with pt. Pt to call if awake. Plant to place on monitor at 2300 to assess for 4th dose Misoprostil at that time. Pt education performed regarding symptoms to report.
--- NOTE | 2020-09-26 23:15 | NUR.NOTE ---
Addendum entered by Pat Obando 09/26/20 23:18: Pt appears comfortable. Was able to sleep [id number] as reported by pt. Original Note: Nursing Note:Pt is boogie too frequently at this time to give Miso dose number 4. Instructed pt to hydrate, will monitor for another hour and reevaluate.
[2020-09-27] VITALS (12 sets, daily range): BP systolic 124–141; BP diastolic 60–84; PULSE 79–94; RESP 16–17; TEMP 36.6–37.1
[2020-09-27] MEDS: miSOPROStol 25 MCG TAB 50 MCG PO ×3 (02:55→14:00)
--- NOTE | 2020-09-27 09:38 | PGE_ITS ---
Date of service: 09/26/20 Time of Service: 20:00 Pelvic Exam Pooling: Negative Contractions Monitor Mode: External Contraction Frequency(min): every 2-5 minutes Intensity: Mild/Moderate Fetus A Monitor: External (US) Heart Rate Baseline: 140 Presentation: Vertex Variability: Moderate (6-25 BPM) Categories: Category I FHR Rhythm: Regular Characteristics: Normal Accelerations: 15 X 15 Decelerations: None Assessment and Plan Assessment and plan (1) Elective induction of labor planned: Status: Acute Assessment and plan: Coping well with contractions. Continue cervical ripening with misoprostol. Category 1 tracing. Comfort measures provided. Anticipate Objective Abnormal lab results 09/26/20 09/26/20 Range/Units 11:04 11:04 WBC 12.13 H (4.4-10.8) 10^3/uL MPV 11.8 H (8.0-11.0) fL Anion Gap 11.9 H (3-11) mmol/L BUN 6 L (7-18) mg/dL Creatinine 0.5 L (0.55-1.02) mg/dL Albumin 3.0 L (3.4-5.0) g/dL Temp Pulse Resp BP 98.2 F 80 16 124/73 09/27/20 07:12 09/27/20 07:12 09/27/20 07:12 09/27/20 07:12 Laboratory Results WBC 12.13 10^3/uL (4.4-10.8) H 09/26/20 11:04 RBC 4.70 10^6/uL (3.93-5.22) 09/26/20 11:04 Hgb 13.7 g/dL (11.2-15.7) 09/26/20 11:04 Hct 40.5 % (36.0-46.0) 09/26/20 11:04 MCV 86.2 fL (80-95) 09/26/20 11:04 MCH 29.1 pg (27.0-33.0) 09/26/20 11:04 MCHC 33.8 % (32.0-36.0) 09/26/20 11:04 RDW 13.4 % (11.7-14.6) 09/26/20 11:04 Plt Count 179 10^3/uL (130-400) 09/26/20 11:04 MPV 11.8 fL (8.0-11.0) H 09/26/20 11:04 Sodium 139 mmol/L (136-145) 09/26/20 11:04 Potassium 3.9 mmol/L (3.5-5.1) 09/26/20 11:04 Chloride 106 mmol/L (98-107) 09/26/20 11:04 Carbon Dioxide 21.1 mmol/L (21.0-32.0) 09/26/20 11:04 Anion Gap 11.9 mmol/L (3-11) H 09/26/20 11:04 BUN 6 mg/dL (7-18) L 09/26/20 11:04 Creatinine 0.5 mg/dL (0.55-1.02) L 09/26/20 11:04 Estimated GFR/1.73 m2 >= 60.00 (mL/min/1.73m2) 09/26/20 11:04 Glucose 77 mg/dL (74-106) 09/26/20 11:04 Uric Acid 4.1 mg/dL (2.6-6.0) 09/26/20 11:04 Calcium 8.9 mg/dL (8.5-10.1) 09/26/20 11:04 Total Bilirubin 0.4 mg/dL (0.2-1.0) 09/26/20 11:04 AST 15 U/L (15-37) 09/26/20 11:04 ALT 18 U/L (14-59) 09/26/20 11:04 Alkaline Phosphatase 110 U/L (46-116) 09/26/20 11:04 Total Protein 6.9 g/dL (6.4-8.2) 09/26/20 11:04 Albumin 3.0 g/dL (3.4-5.0) L 09/26/20 11:04 Ur Random Creatinine 43.30 mg/dL 09/26/20 10:35 U Random Total Protein 13.1 mg/dL 09/26/20 10:35 U [place] Prot/Creat Ratio 0.30 09/26/20 10:35 COVID-19 Source Cancelled 09/26/20 11:07 COVID-19 Source Nasal/nares 09/26/20 11:07 SARS-CoV-2 (PCR) Cancelled 09/26/20 11:07 SARS-CoV-2 (PCR) Negative (Negative) 09/26/20 11:07 Patient ABO/Rh A Positive 09/26/20 11:04 Antibody Screen Negative 09/26/20 11:04 Subjective Patient Reports: No new Complaints Interval history since last seen: Mild tightness with contractions. Results Hemoglobin/Hematocrit: Hgb 13.7 g/dL (11.2-15.7) 09/26/20 11:04 Hct 40.5 % (36.0-46.0) 09/26/20 11:04 Abnormal Lab Findings: Abnormal Labs 09/26/20 09/26/20 11:04 11:04 WBC 12.13 H MPV 11.8 H Anion Gap 11.9 H BUN 6 L Creatinine 0.5 L Albumin 3.0 L
--- NOTE | 2020-09-27 09:41 | W.PM.OBNL1 ---
Date of service: 09/27/20 Time of Service: 09:41 Informed Consent Informed Consent: Induction of Labor Pelvic Exam Dilation: 1 Effacement (%): 50 station: -1 Cervix Position: mid Consistency: soft Vaginal Exam Presentation: Cephalic Pooling: Negative Contractions Monitor Mode: External Contraction Frequency(min): every 2-3 Contraction Duration(sec): 45 Intensity: Mild/Moderate Fetus A Monitor: External (US) Heart Rate Baseline: 140 Presentation: Vertex Variability: Moderate (6-25 BPM) Categories: Category I FHR Rhythm: Regular Characteristics: Normal Accelerations: 15 X 15 Decelerations: None Assessment and Plan Assessment and plan (1) Elective induction of labor planned: Status: Acute Assessment and plan: Coping well with contractions. Cook ripening balloon placed easily. Category 1 tracing. Comfort measures provided. Anticipate (2) Proteinuria: Status: Acute Assessment and plan: urine protein creatinene ratio 0.30 on admission. B.P. 124/73 Objective Abnormal lab results 09/26/20 09/26/20 Range/Units 11:04 11:04 WBC 12.13 H (4.4-10.8) 10^3/uL MPV 11.8 H (8.0-11.0) fL Anion Gap 11.9 H (3-11) mmol/L BUN 6 L (7-18) mg/dL Creatinine 0.5 L (0.55-1.02) mg/dL Albumin 3.0 L (3.4-5.0) g/dL Temp Pulse Resp BP 98.2 F 80 16 124/73 09/27/20 07:12 09/27/20 07:12 09/27/20 07:12 09/27/20 07:12 Laboratory Results WBC 12.13 10^3/uL (4.4-10.8) H 09/26/20 11:04 RBC 4.70 10^6/uL (3.93-5.22) 09/26/20 11:04 Hgb 13.7 g/dL (11.2-15.7) 09/26/20 11:04 Hct 40.5 % (36.0-46.0) 09/26/20 11:04 MCV 86.2 fL (80-95) 09/26/20 11:04 MCH 29.1 pg (27.0-33.0) 09/26/20 11:04 MCHC 33.8 % (32.0-36.0) 09/26/20 11:04 RDW 13.4 % (11.7-14.6) 09/26/20 11:04 Plt Count 179 10^3/uL (130-400) 09/26/20 11:04 MPV 11.8 fL (8.0-11.0) H 09/26/20 11:04 Sodium 139 mmol/L (136-145) 09/26/20 11:04 Potassium 3.9 mmol/L (3.5-5.1) 09/26/20 11:04 Chloride 106 mmol/L (98-107) 09/26/20 11:04 Carbon Dioxide 21.1 mmol/L (21.0-32.0) 09/26/20 11:04 Anion Gap 11.9 mmol/L (3-11) H 09/26/20 11:04 BUN 6 mg/dL (7-18) L 09/26/20 11:04 Creatinine 0.5 mg/dL (0.55-1.02) L 09/26/20 11:04 Estimated GFR/1.73 m2 >= 60.00 (mL/min/1.73m2) 09/26/20 11:04 Glucose 77 mg/dL (74-106) 09/26/20 11:04 Uric Acid 4.1 mg/dL (2.6-6.0) 09/26/20 11:04 Calcium 8.9 mg/dL (8.5-10.1) 09/26/20 11:04 Total Bilirubin 0.4 mg/dL (0.2-1.0) 09/26/20 11:04 AST 15 U/L (15-37) 09/26/20 11:04 ALT 18 U/L (14-59) 09/26/20 11:04 Alkaline Phosphatase 110 U/L (46-116) 09/26/20 11:04 Total Protein 6.9 g/dL (6.4-8.2) 09/26/20 11:04 Albumin 3.0 g/dL (3.4-5.0) L 09/26/20 11:04 Ur Random Creatinine 43.30 mg/dL 09/26/20 10:35 U Random Total Protein 13.1 mg/dL 09/26/20 10:35 U [place] Prot/Creat Ratio 0.30 09/26/20 10:35 COVID-19 Source Cancelled 09/26/20 11:07 COVID-19 Source Nasal/nares 09/26/20 11:07 SARS-CoV-2 (PCR) Cancelled 09/26/20 11:07 SARS-CoV-2 (PCR) Negative (Negative) 09/26/20 11:07 Patient ABO/Rh A Positive 09/26/20 11:04 Antibody Screen Negative 09/26/20 11:04 Subjective Patient Reports: No new Complaints Interval history since last seen: Resting comfortably. 5th dose of misoprostol given this morning. Mild contractions. Coping well. Results Hemoglobin/Hematocrit: Hgb 13.7 g/dL (11.2-15.7) 09/26/20 11:04 Hct 40.5 % (36.0-46.0) 09/26/20 11:04 Abnormal Lab Findings: Abnormal Labs 09/26/20 09/26/20 11:04 11:04 WBC 12.13 H MPV 11.8 H Anion Gap 11.9 H BUN 6 L Creatinine 0.5 L Albumin 3.0 L
[2020-09-27] MEDS: Normal Saline 250 ML IV (10:30)
[2020-09-27] MEDS: Penicillin G POT. 5,000,000 UNITS in Normal Saline 100 ML 200 UNITS IVPB (10:32)
[2020-09-27] MEDS: Normal Saline 500 ML 125 ML IV (10:36)
[2020-09-27] MEDS: Penicillin G POT. 3,000,000 UNITS in Normal Saline 50 ML 100 UNITS IVPB ×3 (14:17→22:15)
[2020-09-27] MEDS: Normal Saline Flush 10 ML SYR IVP ×2 (14:19→14:40)
--- NOTE | 2020-09-27 18:29 | PGE_ITS ---
Date of service: 09/27/20 Time of Service: 13:30 Informed Consent Informed Consent: Induction of Labor Pelvic Exam Pooling: Negative Contractions Monitor Mode: External Contraction Frequency(min): every 2-4 Intensity: Mild/Moderate Fetus A Monitor: External (US) Heart Rate Baseline: 140 Presentation: Cephalic Variability: Minimal (1-5 BPM) Categories: Category I FHR Rhythm: Regular Characteristics: Normal Accelerations: 15 X 15 Decelerations: None Amniotic Membrane Status: Intact Assessment and Plan Assessment and plan (1) Elective induction of labor planned: Status: Acute Assessment and plan: Emmie wishes to avoid pitocin if possible. Consider ROM if it does not occur spontaneously. (2) Proteinuria: Status: Acute (3) GBS (group B Streptococcus carrier), +RV culture, currently : Status: Acute Objective Temp Pulse Resp BP 98.2 F 85 16 124/73 09/27/20 13:56 09/27/20 13:56 09/27/20 13:56 09/27/20 13:56 Laboratory Results WBC 12.13 10^3/uL (4.4-10.8) H 09/26/20 11:04 RBC 4.70 10^6/uL (3.93-5.22) 09/26/20 11:04 Hgb 13.7 g/dL (11.2-15.7) 09/26/20 11:04 Hct 40.5 % (36.0-46.0) 09/26/20 11:04 MCV 86.2 fL (80-95) 09/26/20 11:04 MCH 29.1 pg (27.0-33.0) 09/26/20 11:04 MCHC 33.8 % (32.0-36.0) 09/26/20 11:04 RDW 13.4 % (11.7-14.6) 09/26/20 11:04 Plt Count 179 10^3/uL (130-400) 09/26/20 11:04 MPV 11.8 fL (8.0-11.0) H 09/26/20 11:04 Sodium 139 mmol/L (136-145) 09/26/20 11:04 Potassium 3.9 mmol/L (3.5-5.1) 09/26/20 11:04 Chloride 106 mmol/L (98-107) 09/26/20 11:04 Carbon Dioxide 21.1 mmol/L (21.0-32.0) 09/26/20 11:04 Anion Gap 11.9 mmol/L (3-11) H 09/26/20 11:04 BUN 6 mg/dL (7-18) L 09/26/20 11:04 Creatinine 0.5 mg/dL (0.55-1.02) L 09/26/20 11:04 Estimated GFR/1.73 m2 >= 60.00 (mL/min/1.73m2) 09/26/20 11:04 Glucose 77 mg/dL (74-106) 09/26/20 11:04 Uric Acid 4.1 mg/dL (2.6-6.0) 09/26/20 11:04 Calcium 8.9 mg/dL (8.5-10.1) 09/26/20 11:04 Total Bilirubin 0.4 mg/dL (0.2-1.0) 09/26/20 11:04 AST 15 U/L (15-37) 09/26/20 11:04 ALT 18 U/L (14-59) 09/26/20 11:04 Alkaline Phosphatase 110 U/L (46-116) 09/26/20 11:04 Total Protein 6.9 g/dL (6.4-8.2) 09/26/20 11:04 Albumin 3.0 g/dL (3.4-5.0) L 09/26/20 11:04 Ur Random Creatinine 43.30 mg/dL 09/26/20 10:35 U Random Total Protein 13.1 mg/dL 09/26/20 10:35 U [place] Prot/Creat Ratio 0.30 09/26/20 10:35 COVID-19 Source Cancelled 09/26/20 11:07 COVID-19 Source Nasal/nares 09/26/20 11:07 SARS-CoV-2 (PCR) Cancelled 09/26/20 11:07 SARS-CoV-2 (PCR) Negative (Negative) 09/26/20 11:07 Patient ABO/Rh A Positive 09/26/20 11:04 Antibody Screen Negative 09/26/20 11:04 Subjective Patient Reports: No new Complaints Interval history since last seen: Emmie reports that her contractions are less strong and she had a nap. She has been ambulating.. We discussed the option of another dose of misoprostol and she would like to proceed with that. The Cook ripening balloon remains in place. Penicillin was started per protocol for GBS prophylaxis. Results Hemoglobin/Hematocrit: Hgb 13.7 g/dL (11.2-15.7) 09/26/20 11:04 Hct 40.5 % (36.0-46.0) 09/26/20 11:04 Abnormal Lab Findings: Abnormal Labs 09/26/20 09/26/20 11:04 11:04 WBC 12.13 H MPV 11.8 H Anion Gap 11.9 H BUN 6 L Creatinine 0.5 L Albumin 3.0 L
--- NOTE | 2020-09-27 20:30 | W.PM.OBNL1 ---
Date of service: 09/27/20 Time of Service: 20:30 Informed Consent Informed Consent: Induction of Labor Pelvic Exam Dilation: 4 Effacement (%): 80 station: -1 Cervix Position: posterior Consistency: soft Vaginal Exam Presentation: Cephalic Contractions Monitor Mode: External Contraction Frequency(min): every 5 minutes Contraction Duration(sec): 60 Fetus A Monitor: External (US) Heart Rate Baseline: 140 Presentation: Vertex Variability: Moderate (6-25 BPM) Categories: Category I FHR Rhythm: Regular Accelerations: 15 X 15 Decelerations: None Amniotic Membrane Status: Ruptured Rupture Method: Artifical Amniotic Fluid: Clear Assessment and Plan Assessment and plan (1) Elective induction of labor planned: Status: Acute Assessment and plan: Coping well with contractions. SVE performed and cervix 4 cms. AROM performed. Category 1 tracing. Comfort measures provided. Anticipate Objective Temp Pulse Resp BP 98.2 F 85 16 124/73 09/27/20 13:56 09/27/20 13:56 09/27/20 13:56 09/27/20 13:56 Laboratory Results WBC 12.13 10^3/uL (4.4-10.8) H 09/26/20 11:04 RBC 4.70 10^6/uL (3.93-5.22) 09/26/20 11:04 Hgb 13.7 g/dL (11.2-15.7) 09/26/20 11:04 Hct 40.5 % (36.0-46.0) 09/26/20 11:04 MCV 86.2 fL (80-95) 09/26/20 11:04 MCH 29.1 pg (27.0-33.0) 09/26/20 11:04 MCHC 33.8 % (32.0-36.0) 09/26/20 11:04 RDW 13.4 % (11.7-14.6) 09/26/20 11:04 Plt Count 179 10^3/uL (130-400) 09/26/20 11:04 MPV 11.8 fL (8.0-11.0) H 09/26/20 11:04 Sodium 139 mmol/L (136-145) 09/26/20 11:04 Potassium 3.9 mmol/L (3.5-5.1) 09/26/20 11:04 Chloride 106 mmol/L (98-107) 09/26/20 11:04 Carbon Dioxide 21.1 mmol/L (21.0-32.0) 09/26/20 11:04 Anion Gap 11.9 mmol/L (3-11) H 09/26/20 11:04 BUN 6 mg/dL (7-18) L 09/26/20 11:04 Creatinine 0.5 mg/dL (0.55-1.02) L 09/26/20 11:04 Estimated GFR/1.73 m2 >= 60.00 (mL/min/1.73m2) 09/26/20 11:04 Glucose 77 mg/dL (74-106) 09/26/20 11:04 Uric Acid 4.1 mg/dL (2.6-6.0) 09/26/20 11:04 Calcium 8.9 mg/dL (8.5-10.1) 09/26/20 11:04 Total Bilirubin 0.4 mg/dL (0.2-1.0) 09/26/20 11:04 AST 15 U/L (15-37) 09/26/20 11:04 ALT 18 U/L (14-59) 09/26/20 11:04 Alkaline Phosphatase 110 U/L (46-116) 09/26/20 11:04 Total Protein 6.9 g/dL (6.4-8.2) 09/26/20 11:04 Albumin 3.0 g/dL (3.4-5.0) L 09/26/20 11:04 Ur Random Creatinine 43.30 mg/dL 09/26/20 10:35 U Random Total Protein 13.1 mg/dL 09/26/20 10:35 U [place] Prot/Creat Ratio 0.30 09/26/20 10:35 COVID-19 Source Cancelled 09/26/20 11:07 COVID-19 Source Nasal/nares 09/26/20 11:07 SARS-CoV-2 (PCR) Cancelled 09/26/20 11:07 SARS-CoV-2 (PCR) Negative (Negative) 09/26/20 11:07 Patient ABO/Rh A Positive 09/26/20 11:04 Antibody Screen Negative 09/26/20 11:04 Subjective Patient Reports: No new Complaints Interval history since last seen: No change in contraction strength. Cook balloon removed easily. Bulging membranes noted. Results Hemoglobin/Hematocrit: Hgb 13.7 g/dL (11.2-15.7) 09/26/20 11:04 Hct 40.5 % (36.0-46.0) 09/26/20 11:04 Abnormal Lab Findings: Abnormal Labs 09/26/20 09/26/20 11:04 11:04 WBC 12.13 H MPV 11.8 H Anion Gap 11.9 H BUN 6 L Creatinine 0.5 L Albumin 3.0 L
[2020-09-28] VITALS (10 sets, daily range): BP systolic 120–137; BP diastolic 56–85; PULSE 83–103; RESP 16–98; TEMP 36.6–36.9; O2SAT 96–98
[2020-09-28] MEDS: Oxytocin/Normal Saline 30 UNIT/500 ML BAG 95 UNITS IV (01:00)
--- NOTE | 2020-09-28 01:33 | OBVDS_ITS ---
Date of service: 09/28/20 Time of Service: 01:33 OB Labor/ Delivery Information Baby A Delivery Delivery Method: Spontaneaous Presentation: Vertex Cephalic Position: Vertex Vertex Position: Right Occipital Anterior Cord Description-Baby A: 3 Vessels Amniotic Fluid: Clear Estimated Blood Loss: 300 Delivery Outcome: Liveborn Note: Emmie's contractions became strong and she used the tub and nitrous oxide for pain relief. She had an urge to push in the tub and returned to bed in the hands and knees position. FHTs 150s during first stage of labor. FHTs 150-160 in second stage. Progressed to full dilation and began pushing. Second stage huddle was done. Spontaneous delivery of male delivered in [place] position. A loose nuchal cord was reduced after delivery, Baby was passed to mother's arms and dried and stimulated. Spontaneous cry. Cord was clamped and cut by the baby's father. The placenta delivered spontaneously and appears to by intact with a three vessel cord. Pitocin 30 units I.V. was administered after delivery of the placenta. The perineum was inspected and a small 2nd degree laceration was repaired with 4-0 vicryl suture under local anesthetic. The baby did breastfeed. After delivery, Mother and baby and father of the baby were st able and bonding well in the delivery room and there were no complications. Providers Nurse Hide Selector: Rosa Aragon Nurse: Kimberly Mcleod Nurse: Radha Conte Labor/Delivery Information Number of Babies in Womb: 1 Steroids Given: None Reason Steroids Not Administered: N/A Group Beta Strep: Positive Antibiotics Administered: Yes Rubella Status: Immune Blood Type: A+ Varicella Immunity: Immune Maternal Complications: None Shoulder Dystocia: No Stages of Labor ROM Baby A: 09/27/20 ROM Baby A: 20:14 ROM Total Time- Baby A: [id number] Infant Delivery Date-Baby A: 09/28/20 Delivery Time-Baby A: 00:45 Placenta Delivery Date-Baby A: 09/28/20 Placenta Delivery Time-Baby A: 00:53 Labor-Stage 3 Duration: 8 minutes Placenta Cultured: No Placenta Status: Delivered Baby A Infant Gender: Male Gestational Status: Term (39-41.6 wks) Gestational Age in Weeks/Days: 39 Weeks and 2 Days Interventions Repair of Laceration Type: Perineal , Laceration Extension: First Degree . Sponge Count Correct: No Sponges Placed in Vagina , Sharp Count Correct: Yes . Laceration Repair Note: small 1st degree repaired with 4-0 vicryl.
[2020-09-28] MEDS: Ibuprofen 600 MG TAB PO ×3 (01:58→19:35)
[2020-09-28] MEDS: Docusate Sodium 100 MG CAP PO ×2 (01:59→18:17)
[2020-09-28] MEDS: Acetaminophen 325 MG TAB 650 MG PO ×2 (01:59→07:42)
[2020-09-29] MEDS: Acetaminophen 325 MG TAB 650 MG PO (05:18)
[2020-09-29] MEDS: Ibuprofen 600 MG TAB PO (05:19)
[2020-09-29] MEDS: Docusate Sodium 100 MG CAP PO (05:19)
[2020-09-29 05:24] VITALS: BP 122/68; PULSE 80; RESP 20; TEMP 36.7; O2SAT 96
[2020-09-29 07:01] LABS: HCT 39.6 % (36.0-46.0); HGB 13.2 g/dL (11.2-15.7); MCH 28.8 pg (27.0-33.0); MCHC 33.3 % (32.0-36.0); MCV 86.5 fL (80-95); MPV 11.8 fL (8.0-11.0); Platelet Count 149 10^3/uL (130-400); RBC 4.58 10^6/uL (3.93-5.22); RDW 13.9 % (11.7-14.6); RDW-SD 43.8 fL; WBC 11.46 10^3/uL (4.4-10.8)
--- NOTE | 2020-09-29 07:34 | W.PM.OBPNV1 ---
Date of service: 09/29/20 Time of Service: 07:34 Assessment and Plan Assessment and plan (1) Term delivered: Status: Acute Assessment and plan: A: nml PPD#1 Normotensive since delivery off to a good start P: Nbn circ planned for this morning Pt desires discharge today, States she is well supported by FOB and family Undecided regarding BCM F/up appt's made for 2 & 6 wks Written instructions reviewed and given to pt Subjective Subjective Patient comments: No complaints, Pain well controlled, Tolerating diet and Flatus present [place] baby status: Doing well, Nursing well, Rooming in and Strong Bonding Observed feeding status: Exclusively breast feeding Exam Physical Exam Vital signs: Temp Pulse Resp BP Pulse Ox 98.1 F 80 20 122/68 96 09/29/20 05:24 09/29/20 05:24 09/29/20 05:24 09/29/20 05:24 09/29/20 05:24 Vital Signs Reviewed: Yes Constitutional Constitutional: no acute distress and obese HEENT Exam HEENT Exam: Normal Neck Exam Neck Exam: Normal Breast Exam Bilateral: Breast Exam: Normal and Soft Nipple Exam: Normal and Uninjured Respiratory Exam Respiratory Exam: Normal Cardiovascular Exam Cardiovascular Exam: Normal Abdominal Exam Abdomen: Other (soft, nontender) Fundal Exam Fundus: Below Umbilicus and Firm Rectal Exam Rectal Exam: Normal Exam Perineum: Repair Intact Extremities Exam Extremity Exam: Normal Back/Spine/Pelvis Exam Back Exam: Normal Skin Exam Skin Exam: Normal Neurological Exam Neurological Exam: Normal Psychiatric Exam Psychiatric Exam: Normal Results Hemoglobin/Hematocrit: Hgb 13.2 g/dL (11.2-15.7) 09/29/20 06:48 Hct 39.6 % (36.0-46.0) 09/29/20 06:48 Abnormal Lab Findings: Abnormal Labs 09/26/20 09/26/20 09/29/20 11:04 11:04 06:48 WBC 12.13 H 11.46 H MPV 11.8 H 11.8 H Anion Gap 11.9 H BUN 6 L Creatinine 0.5 L Albumin 3.0 L
--- NOTE | 2020-09-29 07:44 | DSE_ITS ---
Date of service: 09/29/20 Time of Service: 07:45 DS: Diagnosis Discharge Diagnosis (1) Term delivered: Status: Acute Discharge Plan Disposition Patient Disposition: HOME Condition: Good Discharge Details Reason For Visit: PROTEINURIA Admit Date/Time: 09/26/20 09:21 Admit Provider: Rosa Aragon Attending Provider: Rosa Aragon Primary Care Provider: Joao Chung Hospital Course Hospital Course: IOL for gestational HTN and super-imposed pre-eclampsia, without complication, discharge on PPD#1 Home Meds and New Rx's Prescriptions: No Action Plus (calcium carb) 27 mg iron- 1 mg tablet 1 tab PO DAILY RF: 0 (DME) breast pump Device See Rx Instructions .ROUTE .MEDSUPPLY Qty: 1 RF: 0 Discharge Instructions Additional Instructions: Please keep your 2 and 6 week appointments with your certified professional midwife.Call at any time for any concerns or questions. Stand Alone Forms: BC Instructions, NB Circumcision Care Inst., NB Instructions, BC Post Vaginal Deliver Activity:: Activity as Tolerated Equipment/Supplies:: No Equipment Needed Diet:: Normal Diet Discharge Orders Discharge Orders: Discharge Order (Routine); Ordered 09/29/20 Ordered By: Jody Valdes OB:DS Summary Summary Vaginal Delivery Method: Spontaneaous Episiotomy Description: None Laceration Description: Perineal Laceration Extension: First Degree Procedures: Adequate GBS prophylaxis achieved during labor Contraception Discussed Contraception Discussed: Yes Contraceptive Plan: Undecided (will discuss further at 2 week PP appt), Infant Gender-Baby A: Male weight: 7 lb 11.459 oz Status at Discharge Functional status at discharge: independent ambulation Overall status at discharge: patient is progressing back to baseline Mental Status: mental status grossly normal Speech and Movement: speech and movement normal and speech clear Mood: congruent mood Affect: normal affect Time Spent with Patient providing and/or coordinating discharge services: Greater than 30 minutes Exam Physical Exam Vital signs: Temp Pulse Resp BP Pulse Ox 98.1 F 80 20 122/68 96 09/29/20 05:24 09/29/20 05:24 09/29/20 05:24 09/29/20 05:24 09/29/20 05:24 Vital Signs Reviewed: Yes Constitutional Constitutional: no acute distress and obese HEENT Exam HEENT Exam: Normal Neck Exam Neck Exam: Normal Breast Exam Bilateral: Breast Exam: Normal and Soft Respiratory Exam Respiratory Exam: Normal Cardiovascular Exam Cardiovascular Exam: Normal Abdominal Exam Abdomen: Other (soft, nontender) Fundal Exam Fundus: Below Umbilicus and Firm Rectal Exam Rectal Exam: Normal Exam Perineum: Repair Intact Extremities Exam Extremity Exam: Normal Back/Spine/Pelvis Exam Back Exam: Normal Skin Exam Skin Exam: Normal Neurological Exam Neurological Exam: Normal Psychiatric Exam Psychiatric Exam: Normal [facility] Medical History (Updated 09/29/20 @ 07:40 by Jody Valdes) Carpal tunnel syndrome Left carpal tunnel injection: 12/15/2018 Elective induction of labor planned GBS (group B Streptococcus carrier), +RV culture, currently HPV (human papilloma virus) infection Nevus Pain of both elbows Proteinuria Rabies exposure Has never been exposed. Received rabies vaccine Surgical History (Updated 04/01/20 @ 10:20 by Yani Charlton CNM) No pertinent past surgical history Family History (Updated 04/01/20 @ 10:23 by Yani Charlton CNM) Paternal Grandmother Breast cancer Maternal Grandmother Glioblastoma Maternal Uncle Diabetes Paternal Uncle Asthma Social History Smoking/Tobacco Use Status: Never Smoking risk assessment performed?: Yes Alcohol Intake: former Substance use type: does not use Do you feel safe at home: Yes Do you feel safe in your relationship?: Yes History History 2 Para 1 Hx # Term Pregnancies 1 Multiple births 0 Hx # Pregnancies 0 Ectopic pregnancies 0 AB induced 0 Hx Number of Living Children 1 AB spontaneous 0 Past Pregnancies Del. Date GA/Weeks # Outcome Route Wgt Sex Labor Lgth Anesthes ia Location Prov Complic 01/08/19 38 Successful vaginal 7 lb 9 oz Male 8 hours of active labor local Rosa Aragon other Delivery Date: 01/08/19 iol for gest htn. Nitrous and one dose of nubain 10 mg SC given. Pitocin used. Second degree laceration repaired under local anesthetic. No infant complications. GBS pos. Rosa Aragon DS: Data Vitals/I&O Vitals and I&O: Vital Signs Temperature 98.1 F 09/29/20 05:24 Pulse 80 09/29/20 05:24 Pulse Rhythm Regular 09/28/20 19:39 Respiratory Rate 20 09/29/20 05:24 Respiratory Depth Normal 09/28/20 07:30 Blood Pressure 122/68 09/29/20 05:24 Blood Pressure Mean 86 09/29/20 05:24 Pulse Oximetry 96 09/29/20 05:24 Pain Level 1 09/29/20 06:19 Intake & Output 09/28/20 09/28/20 09/29/20 11:59 23:59 11:59 Intake Total 0 / 0 Output Total 1300 / 1300 Balance -1300 / -1300 Intake: IV 0 / 0 Output: Urine 1300 / 1300 Other: Urine Color [place] Urine Appearance Clear Urine Odor None Data Completed and Pending Labs on day of discharge: Labs from last 24 hours 09/29/20 06:48 WBC 11.46 H RBC 4.58 Hgb 13.2 Hct 39.6 MCV 86.5 MCH 28.8 MCHC 33.3 RDW 13.9 Plt Count 149 MPV 11.8 H
[2020-09-29 07:50] VITALS: BP 130/83; PULSE 91; RESP 16; TEMP 36.6; O2SAT 95
== END 2020-09-29 10:50 | disposition home or self-care (01) | DRG 807 ==
PROVIDERS: Admitting Provider Advanced Practice Midwife; PCP Internal Medicine; Visit Provider Advanced Practice Midwife
DX: O14.94 Unspecified pre-eclampsia, complicating childbirth (principal); Z37.0 Single live birth; O99.824 Streptococcus B carrier state complicating childbirth; O70.0 First degree perineal laceration during delivery; O99.344 Other mental disorders complicating childbirth; F41.9 Anxiety disorder, unspecified; Z3A.39 39 weeks gestation of pregnancy
CPT/HCPCS: 36415; 80053; 85027; 86850; 86900; 86901; 87635; 59200; 82565; 84156; 84550; J2540; J3490

== ENCOUNTER 2020-11-15 15:22 | Outpatient (REF) | payer OTHER, SELFPAY ==
--- NOTE | 2020-11-15 14:45 | SKI_PTH ---
PATIENT: Emmie Alicea LOC: [facility] U#:[id number] AGE/SX: 35/F ROOM: RE11/15/[address]: Jaylin Pride : 1985 BED: DIS: 11/15/2020 SPEC #: [id number] RECD: 11/16/20 12:40 STATUS: JOSE REQ #: [id number] RAFFAELE: 11/15/20 14:[address]: Jaylin Pride DEPT: Surgical Specimen RECD BY: Yoselyn Pearson ENTERED: 11/16/20 12:41 SP TYPE: SKI OTHR DR: Joao Chung Tissues: 1 - SKIN BIOPSY(SHAVE/PUNCH) Procedures: SKIN LEVEL 4 Comments: [id number]
== END 2020-11-15 15:23 | disposition home or self-care (01) ==
LOC: LBN 15:22
PROVIDERS: PCP Internal Medicine; Visit Provider Nurse Practitioner Family
DX: D22.5 Melanocytic nevi of trunk (principal)
CPT/HCPCS: 88305

== ENCOUNTER 2021-10-13 12:01 | Outpatient (REF) | payer OTHER, SELFPAY ==
--- NOTE | 2021-10-13 08:55 | PAPFT_PTH ---
PATIENT: Emmie Alicea LOC: [facility]#:[id number] AGE/SX: 36/F ROOM: RE10/13/[address]: Jaylin Pride : 1985 BED: DIS: 10/13/2021 SPEC #: [id number] RECD: 10/13/21 13:48 STATUS: JOSE RELamonte #: [id number] RAFFAELE: 10/13/21 08:[address]: Jaylin Pride DEPT: [facility] Cytology RECD BY: Yoselyn Pearson ENTERED: 10/13/21 13:48 SP TYPE: PAPFT OTHR DR: Joao Chung Tissues: 1 - CX/ENDOCX FOR PAP SMEARS Procedures: PAP THIN PREP/UVM Screening HPV DNA PROBE Comments: [id number]
== END 2021-10-13 12:02 | disposition home or self-care (01) ==
LOC: NCHCN 12:01
PROVIDERS: PCP Internal Medicine; Visit Provider Nurse Practitioner Family
DX: Z12.4 Encounter for screening for malignant neoplasm of cervix (principal); Z11.51 Encounter for screening for human papillomavirus (HPV); Z00.00 Encounter for general adult medical examination without abnormal findings; Z01.419 Encounter for gynecological examination (general) (routine) without abnormal findings
CPT/HCPCS: 88142; 87624

== ENCOUNTER 2022-03-30 02:11 | Outpatient (CLI) | payer BC, SELFPAY ==
[2022-03-30 14:50] LABS: Panorama Kit Sent via Fed Ex
[2022-03-30 15:02] LABS: Abs Immature Grans 0.05 10^3/uL (0.0-0.06); Absolute Eosinophil Count 0.13 10^3/uL (0.0-0.7); Absolute Lymphocyte Count 3.03 10^3/uL (1.2-3.4); Basophils % 0.3; Eosinophils % 0.9; HCT 38.8 % (36.0-46.0); Immature Grans % 0.3; Lymphocytes % 21.1; MCH 28.1 pg (27.0-33.0); MCHC 33.5 % (32.0-36.0); MCV 84 fL (80-95); MPV 10.3 fL (8.0-11.0); Monocytes % 4.5; Neutrophils % 72.9; Platelet Count 240 10^3/uL (130-400); RBC 4.63 10^6/uL (3.93-5.22); RDW-SD 39.1 fL; WBC 14.34 10^3/uL (4.4-10.8)
[2022-03-30 15:19] LABS: Absolute Basophil Count 0.04 10^3/uL (0.0-0.2); Absolute Monocyte Count 0.65 10^3/uL (0.1-0.8); Absolute Neutrophil Count 10.45 10^3/uL (1.2-6.7)
[2022-03-30 15:37] LABS: ALT 25 U/L (14-59); AST 12 U/L (15-37); Albumin 3.9 g/dL (3.4-5.0); Alkaline Phosphatase 56 U/L (46-116); Anion Gap 3.3 mmol/L (3-11); BUN 12 mg/dL (7-18); Bilirubin, Total 0.3 mg/dL (0.2-1.0); CO2 24.7 mmol/L (21.0-32.0); CREATININE 0.7 mg/dL (0.55-1.02); Calcium 9.1 mg/dL (8.5-10.1); Chloride 100 mmol/L (98-107); Estimated GFR 116.31 (mL/min/1.73m2); Glucose 160 mg/dL (74-106); Potassium 3.1 mmol/L (3.5-5.1); Sodium 128 mmol/L (136-145); TSH (W/Ref FT4) 0.56 uIU/mL (0.36-3.74); Total Protein 8.1 g/dL (6.4-8.2)
[2022-03-30 16:00] LABS: Glucose,1 Hr (Glucola) 157 mg/dL (80-140)
[2022-04-02 10:20] LABS: Varicella IgG Antibody Positive (See Note)
[2022-04-02 10:25] LABS: Rubella IgG Ab (UVM) Positive (See Note)
[2022-04-02 11:11] LABS: Hepatitis C Ab w Rflx HCV PCR Negative (Negative)
[2022-04-02 11:35] LABS: HIV-1/2 Ag & Ab Screen Negative (Negative)
[2022-04-02 12:30] LABS: Hepatitis B Surface Ag Negative (Negative)
[2022-04-02 21:54] LABS: Syphilis IgG w/Reflex Nonreactive (Nonreactive)
== END 2022-03-30 02:12 | disposition home or self-care (01) ==
LOC: LBO 02:11
PROVIDERS: PCP Internal Medicine; Visit Provider Advanced Practice Midwife
DX: O99.341 Other mental disorders complicating pregnancy, first trimester (principal); O09.521 Supervision of elderly multigravida, first trimester; F41.8 Other specified anxiety disorders; Z87.59 Personal history of other complications of pregnancy, childbirth and the puerperium; Z3A.11 11 weeks gestation of pregnancy
CPT/HCPCS: 36415; 80053; 82950; 86787; 86803; 86850; 86900; 86901; 87340; 87389; 84443; 85025; 86762; 86780

== ENCOUNTER 2022-03-30 16:05 | Outpatient (REF) | payer BC, SELFPAY ==
[2022-03-30 17:14] LABS: *AMPHETAMINES SCREEN URINE Negative (Negative); *BARBITURATES SCREEN URINE Negative (Negative); *BENZODIAZEPINES SCREEN URINE Negative (Negative); Cannabinoids THC Negative (Negative); Cocaine Screen,Urine Negative (Negative); METHADONE URINE SCREEN Negative (Negative); OPIATES URINE SCREEN Negative (Negative)
[2022-03-30 17:16] LABS: Tricyclic Antidepressants Negative (Negative)
[2022-04-02 12:23] LABS: Chlamydia Result Negative (Negative); GC Result Negative (Negative)
[2022-04-05 12:38] LABS: Buprenorphine Negative ng/mL (Cutoff: 5.0); Norbuprenorphine Negative ng/mL (Cutoff: 2.5)
== END 2022-03-30 16:06 | disposition home or self-care (01) ==
LOC: LBN 16:05
PROVIDERS: PCP Internal Medicine; Visit Provider Advanced Practice Midwife
DX: Z34.91 Encounter for supervision of normal pregnancy, unspecified, first trimester (principal)
CPT/HCPCS: 80307; 80348; 87491; 87591

== ENCOUNTER 2022-04-02 13:13 | Outpatient (REF) | payer BC, SELFPAY ==
[2022-04-02 10:02] LABS: PROTEIN 7.4 mg/dL (0.0-11.9); TOTAL PROTEIN,URINE TIMED 188.7 mg/24hr (0.0-149.1); Total Volume 2550 ml
== END 2022-04-02 13:14 | disposition home or self-care (01) ==
LOC: LBN 13:13
PROVIDERS: PCP Internal Medicine; Visit Provider Advanced Practice Midwife
DX: Z87.59 Personal history of other complications of pregnancy, childbirth and the puerperium (principal)
CPT/HCPCS: 81050; 84155

== ENCOUNTER 2022-04-13 01:02 | Outpatient (CLI) | payer BC, SELFPAY ==
[2022-04-13 13:53] LABS: Glucose 1 Hour 181 mg/dL
[2022-04-13 15:54] LABS: Glucose 3 Hour 54 mg/dL
== END 2022-04-13 01:03 | disposition home or self-care (01) ==
LOC: LBO 01:03
PROVIDERS: PCP Internal Medicine; Visit Provider Advanced Practice Midwife
DX: Z34.91 Encounter for supervision of normal pregnancy, unspecified, first trimester (principal); Z3A.13 13 weeks gestation of pregnancy
CPT/HCPCS: 82951

== ENCOUNTER 2022-08-09 02:01 | Outpatient (CLI) | payer BC, SELFPAY ==
[2022-08-09 16:15] LABS: HCT 38.7 % (36.0-46.0); HGB 13.3 g/dL (11.2-15.7); MCH 29.1 pg (27.0-33.0); MCHC 34.4 % (32.0-36.0); MCV 85 fL (80-95); MPV 10.7 fL (8.0-11.0); Platelet Count 213 10^3/uL (130-400); RBC 4.57 10^6/uL (3.93-5.22); RDW 13.7 % (11.7-14.6); RDW-SD 41.9 fL; WBC 11.89 10^3/uL (4.4-10.8)
== END 2022-08-09 02:02 | disposition home or self-care (01) ==
PROVIDERS: PCP Internal Medicine; Visit Provider Advanced Practice Midwife
DX: Z34.93 Encounter for supervision of normal pregnancy, unspecified, third trimester (principal); Z3A.30 30 weeks gestation of pregnancy
CPT/HCPCS: 36415; 85027

== ENCOUNTER 2022-09-06 16:13 | Outpatient (CLI) | payer BC, SELFPAY ==
[2022-09-06 16:20] VITALS: BP 118/63; PULSE 75; TEMP 36.9
[2022-09-06 16:30] VITALS: BP 118/63; PULSE 75
--- NOTE | 2022-09-07 08:09 | W.OBNST ---
Date of service: 09/06/22 Time of Service: 17:00 NST Evaluation Reason for NST Reasons for Nonstress Test: DECREASED MOVEMENT Gestational Age Gestational Age in Weeks and Days: 34 Weeks and 2Days Test and Monitor Explained Test/Monitor Explained: Test Explained, Monitor Explained and Patient Verbalized Understanding Vital Signs Blood Pressure: 118/63 Pulse: 75 Temperature: 98.4 F Urine Results Urine Protein: Negative Urine Ketones: Negative Urine Glucose: Negative Urine Blood: Negative NST Information Date on Monitor: 09/06/22 Time on Monitor: 16:16 Date off Monitor: 09/06/22 Time off Monitor: 16:44 Total Time on Monitor: 28 NST Interventions: None Contraction Frequency: x1 NST Evaluation Patient States Movement: Present FHR Baseline: 125 Variability: Moderate 6-25 bpm Accelerations: 15x15 Decelerations: None NST Results: Reactive Note Ultrasound Done: N/A. NST Note NST Reviewed and Verified by: Mei Valdes
[2022-09-07 08:10] VITALS: BP 118/63; PULSE 75; TEMP 36.9
== END 2022-09-06 16:55 | disposition home or self-care (01) ==
LOC: BCD 16:13 → OBS 16:18
PROVIDERS: PCP Internal Medicine; Visit Provider Advanced Practice Midwife
DX: O36.8131 Decreased fetal movements, third trimester, fetus 1 (principal); Z3A.34 34 weeks gestation of pregnancy
CPT/HCPCS: 59025

== ENCOUNTER 2022-09-21 11:50 | Outpatient (REF) | payer BC, SELFPAY ==
[2022-09-21 13:18] LABS: *AMPHETAMINES SCREEN URINE Negative (Negative); *BARBITURATES SCREEN URINE Negative (Negative); *BENZODIAZEPINES SCREEN URINE Negative (Negative); Cannabinoids THC Negative (Negative); Cocaine Screen,Urine Negative (Negative); METHADONE URINE SCREEN Negative (Negative); OPIATES URINE SCREEN Negative (Negative)
[2022-09-21 13:19] LABS: Tricyclic Antidepressants Negative (Negative)
[2022-09-28 11:06] LABS: Buprenorphine Negative ng/mL (Cutoff: 5.0)
== END 2022-09-21 11:51 | disposition home or self-care (01) ==
LOC: LBN 11:50
PROVIDERS: PCP Internal Medicine; Visit Provider Advanced Practice Midwife
DX: Z34.93 Encounter for supervision of normal pregnancy, unspecified, third trimester (principal); Z36.85 Encounter for antenatal screening for Streptococcus B; Z3A.36 36 weeks gestation of pregnancy
CPT/HCPCS: 80307; 80348; 87081

== ENCOUNTER 2022-10-09 00:52 | Outpatient (CLI) | payer BC, SELFPAY ==
--- NOTE | 2022-10-09 07:45 | DI.US_ITS ---
Exam(s) US OB MARIA EUGENIA WEIGHT EXAM: US OB MARIA EUGENIA WEIGHT CLINICAL HISTORY: MARIA EUGENIA and weight,ELEVATED GLUCOSE. TECHNIQUE: Transabdominal obstetrical ultrasound was performed. COMPARISON: None this to station. FINDINGS: There is a single viable intrauterine gestation with cardiac activity identified-167 bpm The fetus is presently in cephalic position . Amniotic fluid: There is a normal amount of amniotic fluid with an MARIA EUGENIA of 18.2cm. Placental location: The placenta is posterior fundal grade 2,with no evidence of placenta previa. Dating parameters place this at approximately 39 weeks and 4 days gestational age, implying [place] of October 12, 2022. BPD measures 38 weeks and 3 days HC measures 40 weeks and 6 days AC measures 39 weeks and 3 days FL measures 39 weeks and 4 days Estimated weight is 3815 gm-8 pounds, 7 ounces Fetus is at the 81st percentile on the [place]lock scale. IMPRESSION:: Viable 3rd trimester gestation, as described above. DATA REPOSITORY:
== END 2022-10-09 01:12 ==
LOC: DI 00:53
PROVIDERS: PCP Internal Medicine; Visit Provider Advanced Practice Midwife
DX: R73.09 Other abnormal glucose (principal); Z34.93 Encounter for supervision of normal pregnancy, unspecified, third trimester
CPT/HCPCS: 76816

== ENCOUNTER 2022-10-09 12:14 | Outpatient (CLI) | payer BC, SELFPAY ==
[2022-10-09 12:23] VITALS: BP 130/79; PULSE 82; TEMP 36.9
--- NOTE | 2022-10-09 12:52 | W.OBNST ---
Date of service: 10/09/22 Time of Service: 12:20 NST Evaluation Reason for NST Reasons for Nonstress Test: GESTATIONAL HYPERTENSION Gestational Age Gestational Age in Weeks and Days: 39 Weeks and 0Days Test and Monitor Explained Test/Monitor Explained: Test Explained, Monitor Explained and Patient Verbalized Understanding Vital Signs Blood Pressure: 130/79 Pulse: 82 Temperature: 98.4 F NST Information Date on Monitor: 10/09/22 Time on Monitor: 12:00 Date off Monitor: 10/09/22 NST Interventions: None NST Evaluation Patient States Movement: Present FHR Baseline: 135 Variability: Moderate 6-25 bpm Accelerations: 15x15 Decelerations: None NST Results: Reactive Note Ultrasound Done: N/A. NST Note Note: NST is reactive and reassuring. Denies signs of pre-eclampsia. Had US today growth 81% MARIA EUGENIA 18.2 Cephalic. Continue present management. CECELIA NST Reviewed and Verified by: Rosa Arredondo
[2022-10-09 12:53] VITALS: BP 130/79; PULSE 82; TEMP 36.9
== END 2022-10-09 12:15 | disposition home or self-care (01) ==
LOC: BCD 12:14
PROVIDERS: PCP Internal Medicine; Visit Provider Advanced Practice Midwife
DX: O10.013 Pre-existing essential hypertension complicating pregnancy, third trimester (principal); Z3A.39 39 weeks gestation of pregnancy
CPT/HCPCS: 59025

== ENCOUNTER 2022-10-20 09:03 | Inpatient (IN) | payer BC, SELFPAY ==
[2022-10-20] VITALS (13 sets, daily range): BP systolic 109–158; BP diastolic 62–75; PULSE 71–95; RESP 16–18; TEMP 36.6–36.7
--- NOTE | 2022-10-20 09:08 | HPE_ITS ---
Date of service: 10/20/22 Time of Service: 09:08 Assessment and Plan Assessment and plan (1) Uterine contractions at greater than 20 weeks of gestation: Status: Acute Assessment and plan: A: 37 yo @ 40+4 wks, spontaneous onset active labor GBS positive, low risk for PPH and SD Category 1 tracing; pelvis proven to 7'11 P: Admit to BC, CBC, T&S GBS prophylaxis protocol with PCN IVPB Expectant management, intermittent auscultation Anticipate OB-HPI Labor/Delivery History of Present Illness Reason for Visit: Term labor Chief Complaint: Uterine Contractions (contractions began at 0300, have gotten stronger especially in the past hour. No ROM, no bleeding.). RICO Calculator Estimated Delivery Date Method WG Current Estimate 10/16/22 LMP (Certain) Other Estimates 10/18/22 Ultrasound #1 Infant Delivery Date-Baby A 10/20/22 40w 4d History of Present Expected Delivery Route/Plan - CNM FOB - Jeff Pinedo BG GBS POSITIVE Considering hiring a script editor Specific Issues/Plan 1. BMI 31 - early GTT 157, 3 hr GTT @ 13 wks=89/181/140/54 (1 elevation @ 1 hr) 1a. desires QID testing x2 wks instead of repeating 3 hr GTT @ 28 wks 1b. At 32 wks fasting's <95, a couple of 1 hr PP 150's, encouraged more frequent testing, call for elevations over 140. 1c. BG's nml x2 wks, US for growth 38 wks: EFW in 3800 gms and 81st %ile, MARIA EUGENIA 18 2. H/O gest. htn x 2. Will start low dose ASA at 12 wks 3. Emmie and her partner received covid vaccine and booster, received flu vaccine 01/18 4. Anxiety - saw Dr. Brewster in the past. No therapist currently. 5. Family history Tuberous sclerosis- 's brother- genetic counseling in the past at [facility] 6. AMA- Panorama drawn 03/30, CF and SMA previously negative, Level 2 US referral at [facility]- normal US 7. Stress incontinence - referred for pelvic floor PT 8. Breast density right upper breast, breast asymmetry - Breast US scheduled- WNL 9. Tdap 08/09/22 Assessment: History Reviewed & Current Review of Systems Narrative: ROS reviewed and found to be noncontributory other than HPI PFSH All Active Problems (Updated 10/20/22 @ 09:16 by Mei Valdes) Uterine contractions at greater than 20 weeks of gestation (Acute) Stress incontinence (Acute) Advanced maternal age (AMA) in (Acute) BMI 31.0-31.9,adult (Acute) (Acute) Anxiety (Chronic) Nevus (Acute) Medical History (Updated 10/20/22 @ 09:16 by Mei Valdes) Breast asymmetry Breast density Elevated glucose tolerance test Hemorrhoids during puerperium with complication History of gestational hypertension HPV (human papilloma virus) infection Pain of both elbows Proteinuria Rabies exposure Has never been exposed. Received rabies vaccine Surgical History No pertinent past surgical history Family History Paternal Grandmother Breast cancer Maternal Grandmother Glioblastoma Maternal Uncle Diabetes Paternal Uncle Asthma Social History Smoking risk assessment performed?: No Alcohol Intake: former Substance use type: does not use Do you feel safe at home: Yes Do you feel safe in your relationship?: Yes History History 3 Para 2 Hx # Term Pregnancies 2 Multiple births 0 Hx # Pregnancies 0 Ectopic pregnancies 0 AB induced 0 Hx Number of Living Children 2 AB spontaneous 0 Past Pregnancies Del. Date GA/Weeks # Preg Succ Route Wgt Sex Labor Lgth Anesth esia Location Prov Complic 01/08/19 38 vaginal 7 lb 9 oz Male 8 hours of active labor local [facility] other 09/28/20 39 No vaginal 7 lb 11.5 oz Male regional [facility] Delivery Date: 01/08/19 Last Updated by: Rosa Aragon CNM iol for gest htn. Nitrous and one dose of nubain 10 mg SC given. Pitocin used. Second degree laceration repaired under local anesthetic. No infant complications. GBS pos. Delivery Date: 09/28/20 Last Updated by: ANN Sapp, IOL for proteinuria and borderline hypertension Meds Allergies and Home Medications Allergies Allergy/AdvReac Type Severity Reaction Status Date / Time No Known Allergies Allergy Verified 10/16/22 10:48 Home Medications Medication Instructions Recorded Confirmed Type vitamin with calcium 1 tab PO DAILY #90 tabs 02/16/22 10/20/22 Rx no.72-iron 27 mg-folic acid 1 mg tablet ( Plus (calcium carbonate)) aspirin 81 mg capsule 81 mg PO DAILY 05/04/22 10/20/22 History triamcinolone acetonide 0.1 % 1 applic topical DAILY PRN 05/04/22 10/20/22 History topical cream blood sugar diagnostic (FreeStyle #100 ea 06/01/22 10/20/22 Rx Lite Strips) blood-glucose meter (FreeStyle #1 ea 06/01/22 10/20/22 Rx Lite Meter kit) lancets 28 gauge (FreeStyle #100 ea 06/01/22 10/20/22 Rx Lancets) Exam Physical Exam Vital signs: Temp Pulse Resp BP 97.9 F 71 18 139/75 10/20/22 08:34 10/20/22 08:34 10/20/22 08:34 10/20/22 08:34 Vital Signs Reviewed: Yes Constitutional Constitutional: moderate distress and cooperative Detailed Labor and Delivery Exam Dilation: 7 Effacement (%): 100 station: -2 Position: LOP Consistency: soft Amniotic Membrane Status: Intact (BBOW) Contraction Frequency(min): q2-3 Contraction Duration(sec): 60-70 Contraction Intensity: Moderate/Strong Fetus A Heart Rate Baseline: 130 Monitor Accelerations: Present Monitor Decelerations: Early Variability: Moderate (6-25 BPM) Categories: Category I Est. Weight: 8 lb 11.332 oz Est. Weight: 3950 gms HEENT Exam HEENT Exam: Normal Neck Exam Neck Exam: Normal Chest/Brest/Axilla Exam Chest Exam: Normal Breast Exam Breast Exam: Not Done Respiratory Exam Respiratory Exam: Normal Cardiovascular Exam Cardiovascular Exam: Normal Abdominal Exam Abdominal Exam: Normal (Gravid, nontender) Rectal Exam Rectal Exam: Normal Exam Exam: Normal Extremities Exam Extremities Exam: Normal Back/Spine/Pelvis Exam Back Exam: Normal Pelvis Adequate: Yes (proven to ) Skin Exam Skin Exam: Normal Neurological Exam Neurological Exam: Normal Psychiatric Exam Psychiatric Exam: Normal Results Results Group Beta Strep: Positive Blood Type: A+ Rubella Status: Immune Varicella Immunity: Immune Risk Assessment Risk for Shoulder Dystocia Historical/Initial OB: POSITIVE FOR: Pre- BMI>30; NEGATIVE FOR: Pelvic Abnormality, Previous Shoulder Dystocia or Previous Macrosomia 36 Weeks: NEGATIVE FOR: Current Gestational DM, EFW>4500gms or Maternal Weight Gain>40lbs 40 Weeks: NEGATIVE FOR: EFW> 4500 gms, Maternal Weight Gain >40lb or Post Dates Increased Risk?: No Delivery Plan @ 36wks: NVD Delivery Plan @ 40 wks: spont labor, Risk for Pre-Eclampsia Date Initiated/Initials: 03/30/22 KM Yes, if one or more: POSTIVE FOR: Hx Pre-E/Gest HTN; NEGATIVE FOR: Chronic HTN, Multiple Gestation, Pre-gestational DM, Renal Disease, Systemic Lupus or APA Syndrome Yes, if 2 or more: POSITIVE FOR: Age>= 35 yrs and BMI>30; NEGATIVE FOR: Nulliparity, >10yr btwn pregnancies, ethinicty, Mother/Sister w/ Pre-E or Previous IUGR Risk for Post- Hemorrhage Initial: NEGATIVE FOR: Multiple Gestation, Previous PPH, Known Clotting Deficiency, Grand Multiparity or Anticoagulation 36 Weeks: NEGATIVE FOR: Anemia, hgb<10, Low platelets(thrombocytopenia), Gestational HTN or Pre-E, Polyhydraminios or EFW>4500gms 40 Weeks: NEGATIVE FOR: Anemia, hgb<10, Low platelets (thrombocytopenia), Gestation HTN or Pre-E, Polyhydraminios or EFW>4500gms At Risk?: No Counseled re: Active Management: Yes Risks Reviewed Risks Reviewed Upon Admission: Yes
[2022-10-20] MEDS: Penicillin G POT. 5,000,000 UNITS in Normal Saline 100 ML 200 UNITS IVPB (09:25)
[2022-10-20 09:33] LABS: HCT 42.1 % (36.0-46.0); HGB 14.5 g/dL (11.2-15.7); MCH 28.8 pg (27.0-33.0); MCHC 34.4 % (32.0-36.0); MCV 84 fL (80-95); MPV 11.6 fL (8.0-11.0); Platelet Count 184 10^3/uL (130-400); RBC 5.04 10^6/uL (3.93-5.22); RDW 13.5 % (11.7-14.6); RDW-SD 41.4 fL; WBC 13.28 10^3/uL (4.4-10.8)
[2022-10-20] MEDS: Benzocaine 20% 60 ML CAN TP (10:00)
[2022-10-20] MEDS: Oxytocin/Normal Saline 30 UNIT/500 ML BAG 334 UNITS IV (10:05)
--- NOTE | 2022-10-20 11:21 | W.OBDELIVERY ---
Date of service: 10/20/22 Time of Service: 11:21 OB Labor/ Delivery Information Baby A Delivery Delivery Method: Spontaneaous Presentation: Cephalic Cephalic Position: Vertex Vertex Position: Left Occipital Anterior Breech Position: N/A Cord Description-Baby A: 3 Vessels Amniotic Fluid: Clear Estimated Blood Loss: 300 Delivery Outcome: Liveborn Transferred: Remains with Mother Note: Pt using nitrous, laboring hands and knees on floor mat as first dose of PCN infused, FHT per doptone 130's, SROM of clear fluid occurred followed by urges to push. 2nd stage huddle in process of completion as head delivered in a controlled fashion with CNM hands supporting, of vigorous female infant over intact perineum, passed between maternal knees to mother's arms, [place] placenta delivered intact with 3VC, pitocin IV bolus begun. Cord clamped and cut by FOB, pt assisted to bed, vulvar and vaginal inspection reveals introital laceration which persisted with mild oozing of blood so repaired with 3.0 Vicryl under topical Hurricaine spray anesthesia, fundus firm, no clots produced on vaginal sweep, EBL 300 ml, apgars 8/9, weight 3650 gms Providers Nurse Pediatrician Active Practice: Mei Valdes Nurse: Yesica Deluca Nurse: Elissa Moscoso Labor/Delivery Information Number of Babies in Womb: 1 Steroids Given: None Reason Steroids Not Administered: N/A Group Beta Strep: Positive Antibiotics Administered: Yes Number of Doses of Antibiotics: 1 Rubella Status: Immune Blood Type: A+ Varicella Immunity: Immune Maternal Complications: None Shoulder Dystocia: No Stages of Labor Onset of Labor Date: 10/20/22 Onset of Labor Time: 03:00 Complete Dilatation Date: 10/20/22 Complete Dilatation Time: 09:59 Labor - Stage 1 Duration: 6 hours and 59 minutes ROM Baby A: 10/20/22 ROM Baby A: 09:45 ROM Total Time- Baby A: [id number] Infant Delivery Date-Baby A: 10/20/22 Delivery Time-Baby A: 10:00 Labor Stage 2 Duration: 1 minutes Placenta Delivery Date-Baby A: 10/20/22 Placenta Delivery Time-Baby A: 10:04 Labor-Stage 3 Duration: 4 minutes Total Length of Labor-Baby A: 7 hours and 0 minutes Placenta Cultured: No Placenta Status: Delivered Baby A Infant Gender: Female Gestational Status: Term (39-41.6 wks) Gestational Age in Weeks/Days: 40 Weeks and 4 Days weight: 8 lb 0.75 oz Weight Comment: 3650 gms Length-Baby A: 19.75 in Score-1 Minute Interval(Baby A) Heart Rate-1 minute: 100 BPM or Greater Respiratory Effort- 1 minute: Spontaneous/Strong Cry Muscle Tone-1 minute: Active Movement Reflex Response-1 minute: Prompt Response Color-1 minute: Pallor or Cyanosis Total Score-1 minute: 8 Score-5 Minute Interval(Baby A) Heart Rate- 5 minute: 100 BPM or Greater Respiratory Effort-5 minute: Spontaneous/Strong Cry Muscle Tone-5 minute: Active Movement Reflex Response-5 minute: Prompt Response Color-5 minute: Bluish Hands or Feet Total Score- 5 minute: 9 Procedure Procedures: Cord Blood Collection Interventions Repair of Laceration Type: Other (introital), Laceration Extension: N/A. Sponge Count Correct: No Sponges Placed in Vagina, Sharp Count Correct: Yes.
[2022-10-20] MEDS: Acetaminophen 325 MG TAB 650 MG PO ×2 (13:50→19:57)
[2022-10-20] MEDS: Ibuprofen 600 MG TAB PO ×2 (14:00→19:57)
[2022-10-20] MEDS: Hamamelis Leaf/Glycerin 100 EACH BOX PR (14:00)
[2022-10-20] MEDS: Dibucaine 1% 28 GM TUBE TP (14:00)
[2022-10-21 05:00] VITALS: BP 119/78; PULSE 79; TEMP 36.4
[2022-10-21] MEDS: Ibuprofen 600 MG TAB PO ×2 (05:09→11:10)
[2022-10-21] MEDS: Acetaminophen 325 MG TAB 650 MG PO ×2 (05:09→11:10)
--- NOTE | 2022-10-21 07:04 | W.PM.OBPNV1 ---
Date of service: 10/21/22 Time of Service: 07:04 Assessment and Plan Assessment and plan (1) Term delivered: Status: Acute Assessment and plan: A: Nml PPD#1 off to a good start P: 48 hr obs per Peds due to inadequate GBS prophylaxis Continue current care Vasectomy is planned with condoms in the interim. Subjective Subjective Patient comments: No complaints, Pain well controlled, Tolerating diet and Flatus present Patient's Mood: happy, tired [place] baby status: Doing well, Nursing well, Rooming in and Strong Bonding Observed [place] feeding status: Exclusively breast feeding Exam Physical Exam Vital signs: Temp Pulse Resp BP 97.6 F 79 16 119/78 10/21/22 05:00 10/21/22 05:00 10/20/22 20:00 10/21/22 05:00 Vital Signs Reviewed: Yes Constitutional Constitutional: no acute distress, obese and cooperative HEENT Exam HEENT Exam: Normal Neck Exam Neck Exam: Normal Respiratory Exam Respiratory Exam: Normal Cardiovascular Exam Cardiovascular Exam: Normal Abdominal Exam Abdomen: Other (soft, nontender) Fundal Exam Fundus: Below Umbilicus and Firm Rectal Exam Rectal Exam: Normal Exam Patient deferred: external exam Extremities Exam Extremity Exam: Normal, Full ROM and Warm to Touch Back/Spine/Pelvis Exam Back Exam: Normal Skin Exam Skin Exam: Normal Neurological Exam Neurological Exam: Normal Psychiatric Exam Psychiatric Exam: Normal Results Hemoglobin/Hematocrit: Hgb 14.5 g/dL (11.2-15.7) 10/20/22 09:19 Hct 42.1 % (36.0-46.0) 10/20/22 09:19 Abnormal Lab Findings: Abnormal Labs 10/20/22 09:19 WBC 13.28 H MPV 11.6 H
[2022-10-21 08:30] VITALS: BP 109/70; PULSE 86; RESP 16; TEMP 36.8
[2022-10-21 20:00] VITALS: BP 117/76; PULSE 81; RESP 16; TEMP 36.7
[2022-10-22] MEDS: Acetaminophen 325 MG TAB 650 MG PO (00:09)
[2022-10-22] MEDS: Ibuprofen 600 MG TAB PO (00:09)
[2022-10-22 05:00] VITALS: BP 113/74; PULSE 73; TEMP 36.5
[2022-10-22 08:01] VITALS: BP 112/65; PULSE 79; RESP 18; TEMP 36.7
--- NOTE | 2022-10-22 09:55 | W.PM.OBPNV1 ---
Date of service: 10/22/22 Time of Service: 09:55 Assessment and Plan Assessment and plan (1) Term delivered: Status: Acute Assessment and plan: A: PPD#2, nml recovery P: Discharge today Written instructions reviewed and given to pt F/up at 2 & 6 wks Vasectomy planned, condoms in the interim Subjective Subjective Patient comments: No complaints, Pain well controlled, Tolerating diet and Flatus present Patient's Mood: happy baby status: Doing well, Nursing well, Rooming in and Strong Bonding Observed feeding status: Exclusively breast feeding Exam Physical Exam Vital signs: Temp Pulse Resp BP 98.1 F 79 18 112/65 10/22/22 08:01 10/22/22 08:01 10/22/22 08:01 10/22/22 08:01 Vital Signs Reviewed: Yes Constitutional Constitutional: no acute distress, obese and cooperative HEENT Exam HEENT Exam: Normal Neck Exam Neck Exam: Normal Respiratory Exam Respiratory Exam: Normal Cardiovascular Exam Cardiovascular Exam: Normal Abdominal Exam Abdomen: Other (soft, nontender) Fundal Exam Fundus: Below Umbilicus and Firm Rectal Exam Rectal Exam: Normal Exam Patient deferred: external exam Extremities Exam Extremity Exam: Normal, Full ROM and Warm to Touch Back/Spine/Pelvis Exam Back Exam: Normal Skin Exam Skin Exam: Normal Neurological Exam Neurological Exam: Normal Psychiatric Exam Psychiatric Exam: Normal Results Hemoglobin/Hematocrit: Hgb 14.5 g/dL (11.2-15.7) 10/20/22 09:19 Hct 42.1 % (36.0-46.0) 10/20/22 09:19 Abnormal Lab Findings: Abnormal Labs 10/20/22 09:19 WBC 13.28 H MPV 11.6 H Hemorrrhage Note IV Site Left Hand: IV Catheter Gauge: 20
--- NOTE | 2022-10-22 09:57 | DSE_ITS ---
Date of service: 10/22/22 Time of Service: 09:57 DS: Diagnosis Discharge Diagnosis (1) Term delivered: Status: Acute Discharge Plan Disposition Patient Disposition: Home Condition: Good Discharge Details Reason For Visit: Term labor Admit Date/Time: 10/20/22 09:03 Admit Provider: Mei Valdes Attending Provider: Mei Valdes Primary Care Provider: Joao Chung Hospital Course Hospital Course: , 48 hr stay, nml course. Home Meds and New Rx's Prescriptions: No Action Plus (calcium carb) 27 mg iron- 1 mg tablet 1 tab PO DAILY Qty: 90 3RF triamcinolone acetonide 0.1 % cream 1 applic topical DAILY PRN Discharge Instructions Additional Instructions: Please keep 2 and 6 wk midwifery appointments, call for any and all concerns. Stand Alone Forms: BC Instructions, BC Post Vaginal Deliver Activity:: Activity as Tolerated Equipment/Supplies:: No Equipment Needed Diet:: Normal Diet Discharge Data Discharge Date/Time-TO BE ENTERED AT DEPARTURE: 10/22/22 09:54 OB:DS Summary Summary Vaginal Delivery Method: Spontaneaous Episiotomy Description: None Laceration Description: Other (introital) Laceration Extension: N/A Contraception Discussed Contraception Discussed: Yes Contraceptive Plan: Foam/Condoms and Vasectomy, Gender-Baby A: Female weight: 8 lb 0.75 oz Status at Discharge Functional status at discharge: independent ambulation Overall status at discharge: patient is progressing back to baseline Mental Status: mental status grossly normal Speech and Movement: speech and movement normal and speech clear Mood: congruent mood Affect: normal affect Exam Physical Exam Vital signs: Temp Pulse Resp BP 98.1 F 79 18 112/65 10/22/22 08:01 10/22/22 08:01 10/22/22 08:01 10/22/22 08:01 Constitutional Constitutional: no acute distress, obese and cooperative HEENT Exam HEENT Exam: Normal Neck Exam Neck Exam: Normal Respiratory Exam Respiratory Exam: Normal Cardiovascular Exam Cardiovascular Exam: Normal Abdominal Exam Abdomen: Other (soft, nontender) Fundal Exam Fundus: Below Umbilicus and Firm Rectal Exam Rectal Exam: Normal Exam Patient deferred: external exam Extremities Exam Extremity Exam: Normal, Full ROM and Warm to Touch Back/Spine/Pelvis Exam Back Exam: Normal Skin Exam Skin Exam: Normal Neurological Exam Neurological Exam: Normal Psychiatric Exam Psychiatric Exam: Normal PFSH All Active Problems (Updated 10/21/22 @ 07:09 by Mei Valdes) Term delivered (Acute) Stress incontinence (Acute) BMI 31.0-31.9,adult (Acute) Anxiety (Chronic) Nevus (Acute) Medical History (Updated 10/21/22 @ 07:09 by Mei Valdes) Advanced maternal age (AMA) in Breast asymmetry Breast density Elevated glucose tolerance test Hemorrhoids during puerperium with complication History of gestational hypertension HPV (human papilloma virus) infection Pain of both elbows Proteinuria Rabies exposure Has never been exposed. Received rabies vaccine Uterine contractions at greater than 20 weeks of gestation Surgical History No pertinent past surgical history Family History Paternal Grandmother Breast cancer Maternal Grandmother Glioblastoma Maternal Uncle Diabetes Paternal Uncle Asthma Social History Smoking risk assessment performed?: No Alcohol Intake: former Substance use type: does not use Do you feel safe at home: Yes Do you feel safe in your relationship?: Yes History History 3 Para 2 Hx # Term Pregnancies 2 Multiple births 0 Hx # Pregnancies 0 Ectopic pregnancies 0 AB induced 0 Hx Number of Living Children 2 AB spontaneous 0 Past Pregnancies Del. Date GA/Weeks # Preg Succ Route Wgt Sex Labor Lgth Anesth esia Location [facility] 01/08/19 38 vaginal 7 lb 9 oz Male 8 hours of active labor local [facility] other 09/28/20 39 No vaginal 7 lb 11.5 oz Male [facility] Delivery Date: 01/08/19 Last Updated by: Rosa Aragon CNM iol for gest htn. Nitrous and one dose of nubain 10 mg SC given. Pitocin used. Second degree laceration repaired under local anesthetic. No complications. GBS pos. Delivery Date: 09/28/20 Last Updated by: ANN Sapp, IOL for proteinuria and borderline hypertension DS: Data Vitals/I&O Vitals and I&O: Vital Signs Temperature 98.1 F 10/22/22 08:01 Temperature 97.9 F 10/20/22 08:43 Temperature Source Oral 10/22/22 08:01 Pulse 79 10/22/22 08:01 Pulse 71 10/20/22 08:43 Pulse Rhythm Regular 10/22/22 08:01 Respiratory Rate 18 10/22/22 08:01 Blood Pressure 112/65 10/22/22 08:01 Blood Pressure 139/75 10/20/22 08:43 Blood Pressure Mean 80 10/22/22 08:01 Pain Level 2 10/21/22 11:10 Intake & Output 10/21/22 10/21/22 10/22/22 11:59 23:59 11:59 Other: Urine Color Yellow
== END 2022-10-22 10:40 | disposition home or self-care (01) | DRG 807 ==
LOC: OBS 09:27
PROVIDERS: Admitting Provider Advanced Practice Midwife; PCP Internal Medicine; Visit Provider Advanced Practice Midwife
DX: O99.824 Streptococcus B carrier state complicating childbirth (principal); Z37.0 Single live birth; O70.0 First degree perineal laceration during delivery; O99.344 Other mental disorders complicating childbirth; F41.9 Anxiety disorder, unspecified; Z3A.40 40 weeks gestation of pregnancy; Z82.0 Family history of epilepsy and other diseases of the nervous system; N39.3 Stress incontinence (female) (male); O75.89 Other specified complications of labor and delivery
CPT/HCPCS: 36415; 85027; 86850; 86900; 86901; 59025; J2540

== ENCOUNTER 2023-01-25 03:09 | Outpatient (CLI) | payer BC, SELFPAY ==
[2023-01-25 10:06] LABS: GTT Comment See Comments
== END 2023-01-25 03:10 | disposition home or self-care (01) ==
LOC: LBO 03:09
PROVIDERS: PCP Internal Medicine; Visit Provider Advanced Practice Midwife
DX: Z87.59 Personal history of other complications of pregnancy, childbirth and the puerperium (principal)
CPT/HCPCS: 36415; 82951

== ENCOUNTER 2023-10-22 13:18 | Outpatient (REF) | payer BC, SELFPAY ==
--- NOTE | 2023-10-22 10:35 | PAPFT_PTH ---
PATIENT: Emmie Alicea LOC: [facility] U#:[id number] AGE/SX: 38/F ROOM: RE10/22/[address]: Rosa Arredondo CNM : 1985 BED: DIS: 10/22/2023 SPEC #: [id number] RECD: 10/22/23 13:22 STATUS: JOSE REQ #: [id number] RAFFAELE: 10/22/23 10:[address]: Rosa Arredondo DEPT: [facility] Cytology RECD BY: Yoselyn Pearson ENTERED: 10/22/23 13:22 SP TYPE: PAPFT OTHR DR: Joao Chung Tissues: 1 - CX/ENDOCX FOR PAP SMEARS Procedures: PAP THIN PREP/[facility] Screening HPV DNA PROBE Comments: [id number] (HPV 16 & 18/45)
== END 2023-10-22 13:19 | disposition home or self-care (01) ==
LOC: LBN 13:18
PROVIDERS: PCP Internal Medicine; Visit Provider Advanced Practice Midwife
DX: Z01.419 Encounter for gynecological examination (general) (routine) without abnormal findings (principal)
CPT/HCPCS: 88142; 87480; 87510; 87624; 87660

== ENCOUNTER 2024-11-30 14:56 | Outpatient (REF) | payer BC, SELFPAY | END 2024-11-30 14:57 | disposition home or self-care (01) | LOC: LBN 14:56 | PROVIDERS: PCP Internal Medicine; Visit Provider Obstetrics & Gynecology | DX: Z12.4 Encounter for screening for malignant neoplasm of cervix (principal) | CPT/HCPCS: 88142; 87624 ==

== ENCOUNTER 2025-04-16 14:55 | Outpatient (REF) | payer BC, SELFPAY ==
[2025-04-16 15:38] LABS: HCT 40.3 % (36.0-46.0); HGB 13.2 g/dL (11.2-15.7); MCH 28.0 pg (27.0-33.0); MCHC 32.8 % (32.0-36.0); MCV 85 fL (80-95); MPV 10.8 fL (8.0-11.0); Platelet Count 224 10^3/uL (130-400); RBC 4.72 10^6/uL (3.93-5.22); RDW 12.4 % (11.7-14.6); RDW-SD 38.5 fL; WBC 8.12 10^3/uL (4.4-10.8)
[2025-04-16 15:51] LABS: ALT 33 U/L (10-49); AST 22 U/L (<34); Albumin 4.6 g/dL (3.2-5.0); Alkaline Phosphatase 46 U/L (46-116); Anion Gap 11.3 mmol/L (3-11); BUN 18 mg/dL (9-23); Bilirubin, Total 0.5 mg/dL (0.2-1.2); CO2 25.7 mmol/L (20.0-31.0); Calcium 9.5 mg/dL (8.3-10.6); Chloride 107 mmol/L (98-107); Cholesterol 206 mg/dL (<200); Glucose 82 mg/dL (74-106); HDL Cholesterol 47 mg/dL (>or=50); Potassium 4.0 mmol/L (3.5-5.1); Sodium 144 mmol/L (136-145); Total Protein 7.1 g/dL (5.7-8.2)
== END 2025-04-16 14:56 | disposition home or self-care (01) ==
LOC: NCHCN 14:55
PROVIDERS: PCP Internal Medicine; Visit Provider Nurse Practitioner Family
DX: Z00.00 Encounter for general adult medical examination without abnormal findings (principal)
CPT/HCPCS: 80053; 80061; 85027